=== PATIENT | male | born 1970 | race Caucasian/White ===

== ENCOUNTER 2016-09-26 11:02 | Inpatient (IN) | payer BC ==
--- NOTE | 2016-09-26 11:24 | EDM.PDOC ---
ED HPI GENERAL MEDICAL PROBLEM - General Chief Complaint: Syncope Stated Complaint: NOT FEELING WELL Time Seen by Provider: 09/26/16 11:05 Source of Information: Reports: Patient History Limitations: Reports: No Limitations - History of Present Illness INITIAL COMMENTS - FREE TEXT/NARRATIVE: History of present illness: [46-year-old male presenting with acute complaints of syncope and generally feeling unwell. Patient indicates that he feels somewhat lightheaded and that when he turns his head upside down for any particular reason he feels like he is going to pass out. Patient denies any supplements or workout medication that would affect him this way.] Review of systems: As per history of present illness and below otherwise all systems reviewed and negative. Past medical history: As per history of present illness and as reviewed below otherwise noncontributory. Surgical history: As per history of present illness and as reviewed below otherwise noncontributory. Social history: No reported history of drug or alcohol abuse. Family history: As per history of present illness and as reviewed below otherwise noncontributory. Physical exam: HEENT: Atraumatic, normocephalic, pupils reactive, negative for conjunctival pallor or scleral icterus, mucous membranes moist, throat clear, neck supple, nontender, trachea midline. Lungs: Clear to auscultation, breath sounds equal bilaterally, chest nontender. Heart: S1S2, regular, negative for clicks, rubs, or JVD. Abdomen: Soft, nondistended, nontender. Negative for masses or hepatosplenomegaly. Negative for costovertebral tenderness. Pelvis: Stable nontender. Genitourinary: Deferred. Rectal: Deferred. Extremities: Left leg BKA with stump sock in place negative for cords or calf pain. Neurovascular unremarkable. Neuro: Awake, alert, oriented. Cranial nerves II through XII unremarkable. Cerebellum unremarkable. Motor and sensory unremarkable throughout. Exam nonfocal. Global assessment was benign save subjective complaints of lightheadedness Diagnostics: [CBC, CMP, urine drug screen, UA] Therapeutics: [IV fluid] Impression: [Syncope] Plan: [Admit Definitive disposition and diagnosis as appropriate pending reevaluation and review of above. - Related Data Allergies Allergy/AdvReac Type Severity Reaction Status Date / Time No Known Allergies Allergy Verified 09/26/16 11:09 Home Meds: Home Meds Tadalafil [Cialis] 2.5 mg PO DAILY 03/24/14 [History] Pantoprazole Sodium 0 tab PO DAILY 07/12/15 [History] Magnesium Amino Acid Chelate [Magnesium] 0 mg PO DAILY 09/26/16 [History] Multivit with Calcium,Iron,Min [Essential Daily] 1 tab PO DAILY 09/26/16 [ History] Zinc 50 mg PO DAILY 09/26/16 [History] Past Medical History HEENT History: Reports: Impaired Vision Other HEENT History: wears glasses/contacts Cardiovascular History: Reports: None Respiratory History: Reports: None Gastrointestinal History: Reports: GERD Genitourinary History: Reports: None Neurological History: Reports: Concussion, Headaches, Chronic Other Neuro History: has frequent headaches due to concussion during work accident Psychiatric History: Reports: None Endocrine/Metabolic History: Reports: Obesity/BMI 30+ Hematologic History: Reports: None Immunologic History: Reports: None Oncologic (Cancer) History: Reports: None Dermatologic History: Reports: None - Infectious Disease History Infectious Disease History: Reports: MRSA - Past Surgical History Head Surgeries/Procedures: Reports: None HEENT Surgical History: Reports: None Cardiovascular Surgical History: Reports: None Respiratory Surgical History: Reports: None GI Surgical History: Reports: Appendectomy Male Surgical History: Reports: None Endocrine Surgical History: Reports: None Neurological Surgical History: Reports: None Musculoskeletal Surgical History: Reports: Amputation Other Musculoskeletal Surgeries/Procedures:: 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, proceeded by surgery on his left foot in attempt to save it Oncologic Surgical History: Reports: None Social & Family History - Family History Family Medical History: Noncontributory - Tobacco Use Smoking Status *Q: Never Smoker Second Hand Smoke Exposure: No - Caffeine Use Caffeine Use: Reports: None - Alcohol Use Days Per Week of Alcohol Use: 0 - Recreational Drug Use Recreational Drug Use: No Drug Use in Last 12 Months: No ED ROS GENERAL - Review of Systems Review Of Systems: See Below (History of present illness) ED EXAM, GENERAL - Physical Exam Exam: See Below (History of present illness) Course - Vital Signs Last Recorded V/S: Last Vital Signs Temp 36.6 C 09/26/16 11:16 Pulse 82 09/26/16 11:16 Resp 18 09/26/16 11:16 BP 148/70 H 09/26/16 11:16 Pulse Ox 97 09/26/16 11:16 - Orders/Labs/Meds Orders: Active Orders 24 hr Category Date Time Status DRUG SCREEN, URINE [URCHEM] Stat Lab 09/26/16 11:14 Uncollected RED BLOOD CELLS LP [BBK] Stat Lab 09/26/16 12:54 Received TYPE AND SCREEN [BBK] Stat Lab 09/26/16 12:54 Received UA W/MICROSCOPIC [URIN] Stat Lab 09/26/16 11:14 Uncollected Labs: Laboratory Tests 09/26/16 09/26/16 Range/Units 11:24 11:24 WBC 4.75 (4.0-11.0) K/uL RBC 4.11 L (4.50-5.90) M/uL Hgb 6.3 L (13.0-17.0) g/dL Hct 23.2 L (38.0-50.0) % MCV 56.4 L (80.0-98.0) fL MCH 15.3 L (27.0-32.0) pg MCHC 27.2 L (31.0-37.0) g/dL RDW Std Deviation 44.2 (28.0-62.0) fl RDW Coeff of Branden 22 H (11.0-15.0) % Plt Count 373 (150-400) K/uL MPV 9.10 (7.40-12.00) fL Neut % (Auto) 46.1 L (48.0-80.0) % Lymph % (Auto) 38.1 (16.0-40.0) % [place] % (Auto) 10.3 (0.0-15.0) % Eos % (Auto) 4.4 (0.0-7.0) % Baso % (Auto) 1.1 (0.0-1.5) % Neut # (Auto) 2.2 (1.4-5.7) K/uL Lymph # (Auto) 1.8 (0.6-2.4) K/uL [place] # (Auto) 0.5 (0.0-0.8) K/uL Eos # (Auto) 0.2 (0.0-0.7) K/uL Baso # (Auto) 0.1 (0.0-0.1) K/uL Nucleated RBC % 0.0 /100WBC Nucleated RBCs # 0 K/uL Sodium 138 (136-146) mmol/L Potassium 4.4 (3.5-5.1) mmol/L Chloride 109 (98-110) mmol/L Carbon Dioxide 20 L (21-31) mmol/L BUN 11 (6.0-23.0) mg/dL Creatinine 0.8 (0.6-1.5) mg/dL Est Cr Clr Drug Dosing 140.83 mL/min Estimated GFR (MDRD) > 60.0 ml/min Glucose 102 (60-110) mg/dL Calcium 9.3 (8.8-10.8) mg/dL Total Bilirubin 0.4 (0.1-1.5) mg/dL AST 17 (5-40) IU/L ALT 20 (8-54) IU/L Alkaline Phosphatase 33 L (40-150) Total Protein 7.2 (6.0-8.0) g/dL Albumin 4.1 (3.5-5.0) g/dL Globulin 3.1 (2.0-3.5) g/dL Albumin/Globulin Ratio 1.3 (1.3-2.8) Departure - Departure Time of Disposition: 13:36 Disposition: Home, Self-Care 01 Condition: good Clinical Impression: Syncope - Discharge Information Forms: ED Department Discharge - My Orders Last 24 Hours: My Active Orders 09/26/16 11:14 DRUG SCREEN, URINE [URCHEM] Stat UA W/MICROSCOPIC [URIN] Stat 09/26/16 12:54 RED BLOOD CELLS LP [BBK] Stat TYPE AND SCREEN [BBK] Stat - Assessment/Plan Last 24 Hours: My Active Orders 09/26/16 11:14 DRUG SCREEN, URINE [URCHEM] Stat UA W/MICROSCOPIC [URIN] Stat 09/26/16 12:54 RED BLOOD CELLS LP [BBK] Stat TYPE AND SCREEN [BBK] Stat
[2016-09-26 12:08] LABS: CHLORIDE,CL 109 mmol/L (98-110); SODIUM,NA 138 mmol/L (136-146)
[2016-09-26] MEDS ORDERED: Pantoprazole 80 MG in Sodium Chloride 0.9% 10 ML IVPUSH ONE (15:00)
[2016-09-26] MEDS ORDERED: Sodium Chloride 0.9% 2.5 ML Syringe FLUSH PRN (15:03)
[2016-09-26] MEDS ORDERED: Ondansetron 4 MG/2 ML SDV IVPUSH PRN (15:03)
[2016-09-26] MEDS ORDERED: Acetaminophen 325 MG Tab PO PRN (15:03)
--- NOTE | 2016-09-26 15:08 | PCM.HP ---
H&P History of Present Illness - General Date of Service: 09/26/16 Admit Problem/Dx: Admission Diagnosis/Problem Admission Diagnosis/Problem Anemia Source of Information: Patient History Limitations: Reports: No Limitations - History of Present Illness Initial Comments - Free Text/Narative: This 46 year old male with pmh of GERD, H. pylori, gastritis and BKA from an oil field accident presented to the ED today with concerns of near syncope. He report today he was leaning over and felt very light headed, almost to the point of blacking out but didn't. He thought maybe he needed to eat and drink fluids, which he did and this did not relieve the feelings of lightheadedness. He then came to the ED for evaluation. He reports feeling extremely fatigued over the last week, and did notice some more fatigue with workouts in the last few weeks. He denies hematemesis, black or bloody BMs, denies presence of hemorrhoids. He denies abdominal pain, N/V no diarrhea or constipation. He denies frequent NSAID use, very rare alcohol use, no tobacco products or recreational drug use. He reports he had an EGD last year with Dr Dang, in which a hiatal hernia was noted and after biopsies, severe chronic active gastritis noted along with H. pylori. He reports being treated with 3 medications and completing that course . He has since stayed on Protonix daily. He reports the GERD is tolerable, but he continues to wake up at night with severe heartburn. He does sleep propped up with pillows and tries not eating close to bedtime to reduce GERD symptoms. He denies any chest pain or SOB. In the ED anemia noted, with Hgb 6.3, Hct 23.2, microcytic, hypchromic. BMP WNL. VS stable. Will obtain orthostatics. He will be admitted due to anemia secondary to suspected upper GI bleed. Will consult General surgery to evaluate for possible EGD or further diagnostic study recommendations. Will obtain Iron studies. - Related Data Allergies/Adverse Reactions: Allergies Allergy/AdvReac Type Severity Reaction Status Date / Time No Known Allergies Allergy Verified 09/26/16 11:09 Home Medications: Home Meds Esomeprazole [NexIUM] 40 mg PO DAILY 09/26/16 [History] Multivit with Calcium,Iron,Min [Essential Daily] 1 tab PO DAILY 09/26/16 [ History] Sildenafil [Revatio] 60 mg PO ASDIRECTED PRN 09/26/16 [History] Zinc 50 mg PO DAILY 09/26/16 [History] Past Medical History - Past Health History Medical/Surgical History: Denies Medical/Surgical History HEENT History: Reports: Impaired Vision Other HEENT History: wears glasses/contacts Cardiovascular History: Reports: None. Denies: Blood Clots/VTE/DVT, CAD, High Cholesterol, Hypertension, [place] Respiratory History: Reports: None. Denies: Asthma, COPD, PE, Sleep Apnea Gastrointestinal History: Reports: GERD, Helicobacter Pylori, Hiatal Hernia Genitourinary History: Reports: None. Denies: Acute Renal Failure, Chronic Renal Insuffiency Musculoskeletal History: Reports: Amputation (L BKA secondary to work accident.) Neurological History: Reports: Concussion, Headaches, Chronic Other Neuro History: has frequent headaches due to concussion during work accident Psychiatric History: Reports: None Endocrine/Metabolic History: Reports: None. Denies: Diabetes, Type II, Hypothyroidism Hematologic History: Reports: None Immunologic History: Reports: None Oncologic (Cancer) History: Reports: None Dermatologic History: Reports: None - Infectious Disease History Infectious Disease History: Reports: MRSA - Past Surgical History Head Surgeries/Procedures: Reports: None HEENT Surgical History: Reports: None Cardiovascular Surgical History: Reports: None Respiratory Surgical History: Reports: None GI Surgical History: Reports: Appendectomy Male Surgical History: Reports: None Endocrine Surgical History: Reports: None Neurological Surgical History: Reports: None Musculoskeletal Surgical History: Reports: Amputation Other Musculoskeletal Surgeries/Procedures:: 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, proceeded by surgery on his left foot in attempt to save it Oncologic Surgical History: Reports: None Social & Family History - Family History Family Medical History: Noncontributory - Tobacco Use Smoking Status *Q: Never Smoker Second Hand Smoke Exposure: No - Caffeine Use Caffeine Use: Reports: None - Alcohol Use Alcohol Use History: No Days Per Week of Alcohol Use: 0 - Recreational Drug Use Recreational Drug Use: No Drug Use in Last 12 Months: No - Living Situation & Occupation Living situation: Reports: , with Family Occupation: Employed H&P Review of Systems - Review of Systems: Review Of Systems: See Below General: Reports: Fatigue. Denies: Fever, Chills, Decreased Appetite Pulmonary: Denies: Shortness of Breath, Cough, Sputum Cardiovascular: Reports: Syncope (near syncope today). Denies: Chest Pain, Palpitations, Dyspnea on Exertion, Orthopnea, Edema Gastrointestinal: Reports: Flatus, Other (Heartburn). Denies: Abdominal Pain, Black Stool, Bloody Stool, Constipation, Diarrhea, Decreased Appetite, Hematemesis, Melena, Nausea, Vomiting Genitourinary: Reports: No Symptoms. Denies: Dysuria, Frequency, Burning Musculoskeletal: Reports: No Symptoms Skin: Reports: No Symptoms. Denies: Erythema (denies erythema wounds to L stump ) Neurological: Reports: No Symptoms Hematologic/Lymphatic: Reports: Anemia Immunologic: Reports: No Symptoms Exam - Exam Exam: See Below - Vital Signs Vital Signs: Last Vital Signs Temp 98.8 F 09/26/16 14:42 Pulse 80 09/26/16 14:42 Resp 16 09/26/16 14:42 BP 129/68 09/26/16 14:42 Pulse Ox 98 09/26/16 14:42 Weight: 108.3 kg - Exam General: Alert, Oriented, Cooperative, Other (No acute distress) HEENT: Conjunctiva Clear, Mucosa Moist & [employer], Nares Patent, Posterior Pharynx Clear, Pupils Reactive Neck: Supple, Trachea Midline, 2 Lungs: Clear to Auscultation, Normal Respiratory Effort Cardiovascular: Regular Rate, Regular Rhythm, Normal S1, Normal S2. No: Tachycardia, Systolic Murmur Abdomen: Normal Bowel Sounds, Soft. No: Organomegaly, Distention, Guarding, Rigidity, Tenderness Extremities: Normal Inspection, Normal Pulses, Other (Prosthetic to L lower leg. ) Skin: Warm, Dry, Intact Neuro Extensive - Mental Status: Alert, Oriented x3 Neuro Extensive - Motor, Sensory, Reflexes: CN II-XII Intact Psychiatric: Alert, Normal Affect, Normal Mood - Patient Data Result Diagrams: 09/26/16 11:24 09/26/16 11:24 *Q Meaningful Use (ADM) - VTE *Q VTE Criteria *Q: VTE Pharmacological Contraindications *Q: Risk of Bleeding - Stroke *Q Stroke Criteria *Q: - AMI *Q AMI Criteria *Q: - Problem List (1) Near syncope SNOMED Code(s): 558328043 ICD Code: R55 - SYNCOPE AND COLLAPSE Status: Acute Current Visit: Yes (2) Anemia SNOMED Code(s): 399371671 ICD Code: D64.9 - ANEMIA, UNSPECIFIED Status: Acute Current Visit: Yes Qualifiers: Anemia type: other cause Other causes of anemia: acute posthemorrhagic Qualified Code(s): D62 - Acute posthemorrhagic anemia (3) History of Helicobacter pylori infection SNOMED Code(s): 545876399969630 ICD Code: Z86.19 - PERSONAL HISTORY OF OTHER INFECTIOUS AND PARASITIC DISEASES Status: Chronic Current Visit: Yes Problem Details: 2015 (4) GERD (gastroesophageal reflux disease) SNOMED Code(s): 734305370 ICD Code: K21.9 - GASTRO-ESOPHAGEAL REFLUX DISEASE WITHOUT ESOPHAGITIS Status: Chronic Current Visit: Yes Qualifiers: Esophagitis presence: esophagitis presence not specified Qualified Code(s) : K21.9 - Gastro-esophageal reflux disease without esophagitis Problem List Initiated/Reviewed/Updated: Yes Orders Last 24hrs: Active Orders 24 hr Category Date Time Status Antiembolic Devices [RC] PER UNIT ROUTINE Care 09/26/16 15:04 Ordered Intake and Output [RC] QSHIFT Care 09/26/16 15:03 Ordered Notify Provider Consults [RC] ASDIRECTED Care 09/26/16 15:02 Ordered Oxygen Therapy [RC] PRN Care 09/26/16 15:03 Ordered Telemetry Monitoring [Cardiac Monitoring] [RC] . Care 09/26/16 15:02 Ordered DIRECTED Up With Assistance [RC] ASDIRECTED Care 09/26/16 15:03 Ordered VTE/DVT Education [RC] PER UNIT ROUTINE Care 09/26/16 15:03 Ordered Vital Signs [RC] Q4H Care 09/26/16 15:03 Ordered Consult to Physician [CONS] Routine Cons 09/26/16 15:02 Ordered Clear Liquid Diet [DIET] Diet 09/26/16 Dinner Ordered FERRITIN [REF] Routine Lab 09/26/16 11:24 Received FOLIC ACID [CHEM] Routine Lab 09/26/16 11:24 Received IRON/TIBC [CHEM] Routine Lab 09/26/16 11:24 Received RETICULOCYTE COUNT [HEME] Routine Lab 09/26/16 11:24 Received TRANSFERRIN [CHEM] Routine Lab 09/26/16 11:24 Received VITAMIN B12 [CHEM] Routine Lab 09/26/16 11:24 Received Acetaminophen [Tylenol] Med 09/26/16 15:03 Ordered 650 mg PO Q4H PRN Ondansetron [Zofran] Med 09/26/16 15:03 Ordered 4 mg IVPUSH Q4H PRN Pantoprazole [ProTONIX IV] 80 mg Med 09/26/16 15:00 Active Sodium Chloride 0.9% [Normal Saline] 100 ml IV Q10H Sodium Chloride 0.9% [Saline Flush] Med 09/26/16 15:03 Ordered 2.5 ml FLUSH ASDIRECTED PRN Saline Lock Insert [OM.PC] Routine Ot 09/26/16 15:03 Ordered Sequential Compression Device [OM.PC] Per Unit Routine Ot 09/26/16 15:03 Ordered Transfuse PRBC [Transfuse Red Blood Cells] [COMM] Ot 09/26/16 14:54 Ordered Routine Resuscitation Status Routine Resus Stat 09/26/16 15:03 Ordered Medication Orders Acetaminophen (Tylenol) 650 mg PO Q4H PRN PRN Reason: Pain Pantoprazole Sodium 80 mg/ (Sodium Chloride) 100 mls @ 10 mls/hr IV Q10H CALEB Ondansetron HCl (Zofran) 4 mg IVPUSH Q4H PRN PRN Reason: Nausea Sodium Chloride (Saline Flush) 2.5 ml FLUSH ASDIRECTED PRN PRN Reason: Keep Vein Open Assessment/Plan Comment:: This 46 year old male admitted with symptomatic anemia suspected to be secondary to upper GI bleed 1. Anemia: Hgb 6.3 will transfuse with 2 units, check Hgb post transfusion. Goal Hgb would be at least 8. 2. Upper GI bleed: suspected, will place on Protonix gtt, CL diet for now. Consult General Dr. Timoteo Toribio. Has Hx of H. Pylori infection, which was treated 1 year ago. 3. Near syncope, secondary to symptomatic anemia VTE prophylaxis: SCDs only Dispo: 1-3 days pending improvement.
[2016-09-26] MEDS: Pantoprazole 80 MG in Sodium Chloride 0.9% 100 ML IV SCH (15:54)
--- NOTE | 2016-09-26 18:07 | PCM.CONS ---
H&P History of Present Illness - General Date of Service: 09/26/16 Admit Problem/Dx: Admission Diagnosis/Problem Admission Diagnosis/Problem Anemia Source of Information: Patient History Limitations: Reports: No Limitations - History of Present Illness Onset of Symptoms: Reports: Gradual Duration of Symptoms: Reports: Week(s):, Chronic, Getting Worse Location: Reports: Generalized Severity: Moderate Improves with: Reports: Rest Worsens with: Reports: Movement Context: Reports: Activity/Exercise, Exertion Associated Symptoms: Reports: Malaise, Syncope - Related Data Allergies/Adverse Reactions: Allergies Allergy/AdvReac Type Severity Reaction Status Date / Time No Known Allergies Allergy Verified 09/26/16 11:09 Home Medications: Home Meds Esomeprazole [NexIUM] 40 mg PO DAILY 09/26/16 [History] Multivit with Calcium,Iron,Min [Essential Daily] 1 tab PO DAILY 09/26/16 [ History] Sildenafil [Revatio] 60 mg PO ASDIRECTED PRN 09/26/16 [History] Zinc 50 mg PO DAILY 09/26/16 [History] Past Medical History - Past Health History Medical/Surgical History: Denies Medical/Surgical History HEENT History: Reports: Impaired Vision Other HEENT History: wears glasses/contacts Cardiovascular History: Reports: None. Denies: Blood Clots/VTE/DVT, CAD, High Cholesterol, Hypertension, [place] Respiratory History: Reports: None. Denies: Asthma, COPD, PE, Sleep Apnea Gastrointestinal History: Reports: GERD, Helicobacter Pylori, Hiatal Hernia Genitourinary History: Reports: None. Denies: Acute Renal Failure, Chronic Renal Insuffiency Musculoskeletal History: Reports: Amputation (L BKA secondary to work accident.) Neurological History: Reports: Concussion, Headaches, Chronic Other Neuro History: has frequent headaches due to concussion during work accident Psychiatric History: Reports: None Endocrine/Metabolic History: Reports: None. Denies: Diabetes, Type II, Hypothyroidism Hematologic History: Reports: None Immunologic History: Reports: None Oncologic (Cancer) History: Reports: None Dermatologic History: Reports: None - Infectious Disease History Infectious Disease History: Reports: MRSA - Past Surgical History Head Surgeries/Procedures: Reports: None HEENT Surgical History: Reports: None Cardiovascular Surgical History: Reports: None Respiratory Surgical History: Reports: None GI Surgical History: Reports: Appendectomy, EGD Male Surgical History: Reports: None Endocrine Surgical History: Reports: None Neurological Surgical History: Reports: None Musculoskeletal Surgical History: Reports: Amputation Other Musculoskeletal Surgeries/Procedures:: 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, proceeded by surgery on his left foot in attempt to save it Oncologic Surgical History: Reports: None Social & Family History - Family History Family Medical History: Noncontributory - Tobacco Use Smoking Status *Q: Never Smoker Second Hand Smoke Exposure: No - Caffeine Use Caffeine Use: Reports: None Caffeine Use Comment: 1 cup daily - Alcohol Use Days Per Week of Alcohol Use: 0 - Recreational Drug Use Recreational Drug Use: No Drug Use in Last 12 Months: No - Living Situation & Occupation Living situation: Reports: , with Family Occupation: Employed H&P Review of Systems - Review of Systems: Review Of Systems: See Below General: Reports: Malaise, Weakness, Fatigue HEENT: Reports: No Symptoms Pulmonary: Denies: Shortness of Breath Cardiovascular: Denies: Chest Pain, Palpitations Gastrointestinal: Reports: Flatus. Denies: Abdominal Pain, Anorexia, Black Stool, Bloody Stool, Constipation, Diarrhea, Decreased Appetite, Hematemesis, Hematochezia, Melena, Nausea, Vomiting Genitourinary: Reports: No Symptoms Musculoskeletal: Reports: No Symptoms Skin: Reports: No Symptoms Psychiatric: Reports: No Symptoms Neurological: Reports: No Symptoms Hematologic/Lymphatic: Reports: Anemia. Denies: Easy Bleeding, Easy Bruising Immunologic: Reports: No Symptoms Exam - Exam Exam: See Below - Vital Signs Vital Signs: Last Vital Signs Temp 99.1 F 09/26/16 17:36 Pulse 74 09/26/16 15:36 Resp 19 09/26/16 17:36 BP 133/59 L 09/26/16 17:36 Pulse Ox 96 09/26/16 17:36 Weight: 238 lb 12.17 oz - Exam General: Alert, Oriented, Cooperative HEENT: Conjunctiva Clear, EACs Clear, EOMI, Hearing Intact, Pupils Equal, Pupils Reactive. No: Scleral Icterus Neck: Supple, Trachea Midline Lungs: Clear to Auscultation, Normal Respiratory Effort Cardiovascular: Regular Rate, Regular Rhythm Abdomen: Normal Bowel Sounds, Soft, Pelvis Stable. No: Peritoneal Signs, Distention, Guarding, Rigidity, Rebound, Tenderness (Male) Exam: No Hernia Rectal (Males) Exam: Deferred (Stool hemoccult negative from ER) Back Exam: Normal Inspection Extremities: Normal Inspection, Other (Left BKA) Skin: Warm, Dry, Intact Neurological: Cranial Nerves Intact Neuro Extensive - Mental Status: Alert, Oriented x3, Normal Mood/Affect, Normal Cognition, Memory Intact Psychiatric: Alert, Normal Affect, Normal Mood - Patient Data Result Diagrams: 09/26/16 11:24 09/26/16 11:24 Consult PN Assessment/Plan Procedures: Procedures ASSAY OF ESTRADIOL (12/20/15) ASSAY OF FREE TESTOSTERONE (12/20/15) ASSAY OF GONADOTROPIN (LH) (12/20/15) ASSAY OF TOTAL TESTOSTERONE (12/20/15) ASSAY THYROID STIM HORMONE (12/20/15) CHORIONIC GONADOTROPIN TEST (12/20/15) COMPLETE CBC W/AUTO DIFF WBC (03/24/14) COMPREHEN METABOLIC PANEL (12/20/15) CT ABDOMEN W/O & W/DYE (01/11/16) CULTURE OTHR SPECIMN AEROBIC (09/19/13) DRAINAGE OF SKIN ABSCESS (09/19/13) EGD BIOPSY SINGLE/MULTIPLE (07/14/15) EMERGENCY DEPT VISIT (03/22/16) EMERGENCY DEPT VISIT (09/20/13) EMERGENCY DEPT VISIT (09/19/13) HELICOBACTER PYLORI ANTIBODY (09/06/15) LIPID PANEL (12/20/15) ROUTINE VENIPUNCTURE (12/20/15) THER/PROPH/DIAG INJ SC/IM (09/19/13) X-RAY EXAM OF FINGER(S) (03/22/16) (1) Anemia SNOMED Code(s): 616280909 Code(s): D64.9 - ANEMIA, UNSPECIFIED Priority: High Current Visit: Yes Qualifiers: Anemia type: other cause Other causes of anemia: acute posthemorrhagic Qualified Code(s): D62 - Acute posthemorrhagic anemia (2) Near syncope SNOMED Code(s): 928366616 Code(s): R55 - SYNCOPE AND COLLAPSE Priority: Medium Current Visit: Yes (3) History of Helicobacter pylori infection SNOMED Code(s): 072586141089483 Code(s): Z86.19 - PERSONAL HISTORY OF OTHER INFECTIOUS AND PARASITIC DISEASES Priority: Medium Current Visit: Yes Comment: 2016 Problem List Initiated/Reviewed/Updated: Yes Plan: Esophagogastroduodenoscopy with biopsy. The operative procedure, along with the risks, including, but not limited to, bleeding, perforation, and the need for surgery were discussed with the patient who voices understanding, offers no questions and wishes to proceed.
[2016-09-27] MEDS: Pantoprazole 80 MG in Sodium Chloride 0.9% 100 ML IV SCH ×2 (01:56→10:54)
[2016-09-27 07:19] LABS: CHLORIDE,CL 110 mmol/L (98-110); SODIUM,NA 138 mmol/L (136-146)
--- NOTE | 2016-09-27 07:54 | PCM.PN ---
- General Info Date of Service: 09/27/16 Admission Dx/Problem (Free Text): Admission Diagnosis/Problem Admission Diagnosis/Problem Anemia Subjective Update: Doing well this morning, feels less fatigue. No abdominal pain, no bms overnight. No chest pain or SOB. Does have Heartburn which is baseline for him. Eager for EGD today. Functional Status: Reports: pain controlled, ambulating, urinating - Review of Systems General: Reports: No Symptoms. Denies: Fever HEENT: Reports: no symptoms. Denies: sinus congestion, sore throat Pulmonary: Reports: no symptoms. Denies: shortness of breath, cough, sputum Cardiovascular: Denies: Chest Pain, Palpitations, Dyspnea on Exertion, Lightheadedness Gastrointestinal: Reports: Other (heartburn). Denies: Abdominal pain, Nausea, Vomiting Genitourinary: Reports: no symptoms. Denies: dysuria, frequency, burning, pain Musculoskeletal: Reports: no symptoms Skin: Reports: no symptoms Neurological: Reports: No Symptoms Psychiatric: Reports: no symptoms - Patient Data Vitals - most recent: Last Vital Signs Temp 98.6 F 09/27/16 07:22 Pulse 69 09/27/16 07:22 Resp 15 09/27/16 07:22 BP 117/58 L 09/27/16 07:22 Pulse Ox 96 09/27/16 07:22 Weight - most recent: 108.3 kg I&O - last 24 hours: Intake & Output 09/26/16 09/27/16 09/27/16 22:59 06:59 14:59 Intake Total 762 1400 Output Total 300 1050 Balance 462 350 Lab Results last 24 hrs: Laboratory Results - last 24 hr 09/26/16 09/27/16 09/27/16 Range/Units 21:25 06:35 06:35 WBC 7.39 (4.0-11.0) K/uL RBC 4.97 (4.50-5.90) M/uL Hgb 7.5 L 9.1 L (13.0-17.0) g/dL Hct 26.6 L 30.8 L (38.0-50.0) % MCV 62.0 L (80.0-98.0) fL MCH 18.3 L (27.0-32.0) pg MCHC 29.5 L (31.0-37.0) g/dL RDW Std Deviation 57.9 (28.0-62.0) fl RDW Coeff of Branden 27 H (11.0-15.0) % Plt Count 325 (150-400) K/uL Neut % (Auto) 57.7 (48.0-80.0) % Lymph % (Auto) 29.1 (16.0-40.0) % [place] % (Auto) 9.6 (0.0-15.0) % Eos % (Auto) 3.2 (0.0-7.0) % Baso % (Auto) 0.4 (0.0-1.5) % Neut # (Auto) 4.3 (1.4-5.7) K/uL Lymph # (Auto) 2.2 (0.6-2.4) K/uL [place] # (Auto) 0.7 (0.0-0.8) K/uL Eos # (Auto) 0.2 (0.0-0.7) K/uL Baso # (Auto) 0.0 (0.0-0.1) K/uL Nucleated RBC % 0.0 /100WBC Nucleated RBCs # 0 K/uL Sodium 138 (136-146) mmol/L Potassium 4.9 (3.5-5.1) mmol/L Chloride 110 (98-110) mmol/L Carbon Dioxide 20 L (21-31) mmol/L BUN 8 (6.0-23.0) mg/dL Creatinine 0.8 (0.6-1.5) mg/dL Est Cr Clr Drug Dosing 140.83 mL/min Estimated GFR (MDRD) > 60.0 ml/min Glucose 83 (60-110) mg/dL Calcium 9.4 (8.8-10.8) mg/dL Med Orders - Current: Current Medications Acetaminophen (Tylenol) 650 mg PO Q4H PRN PRN Reason: Pain Pantoprazole Sodium 80 mg/ (Sodium Chloride) 100 mls @ 10 mls/hr IV Q10H [facility] Last Admin: 09/27/16 01:56 Dose: 10 mls/hr Ondansetron HCl (Zofran) 4 mg IVPUSH Q4H PRN PRN Reason: Nausea Sodium Chloride (Saline Flush) 2.5 ml FLUSH ASDIRECTED PRN PRN Reason: Keep Vein Open Discontinued Medications Pantoprazole Sodium 80 mg/ (Sodium Chloride) 10 mls @ 300 mls/hr IVPUSH NOW ONE Stop: 09/26/16 15:01 Last Admin: 09/26/16 15:53 Dose: 300 mls/hr - Exam General: alert, oriented, cooperative HEENT: Pupils equal, Pupils reactive, EOMI, Mucous membr. moist/pink Lungs: Clear to auscultation, Normal respiratory effort Cardiovascular: Regular Rate, Regular Rhythm Abdomen: bowel sounds present, soft, no tenderness, no distension Extremities: no edema, normal pulses Psy/Mental Status: alert, normal affect, normal mood - Problem List & Annotations (1) Near syncope SNOMED Code(s): 533273196 Code(s): R55 - SYNCOPE AND COLLAPSE Status: Acute Priority: Medium Current Visit: Yes (2) Anemia SNOMED Code(s): 371037016 Code(s): D64.9 - ANEMIA, UNSPECIFIED Status: Acute Priority: High Current Visit: Yes Qualifiers: Anemia type: other cause Other causes of anemia: acute posthemorrhagic Qualified Code(s): D62 - Acute posthemorrhagic anemia (3) History of Helicobacter pylori infection SNOMED Code(s): 046866953395731 Code(s): Z86.19 - PERSONAL HISTORY OF OTHER INFECTIOUS AND PARASITIC DISEASES Status: Chronic Priority: Medium Current Visit: Yes Annotation/ Comment:: 2016 (4) GERD (gastroesophageal reflux disease) SNOMED Code(s): 586677962 Code(s): K21.9 - GASTRO-ESOPHAGEAL REFLUX DISEASE WITHOUT ESOPHAGITIS Status: Chronic Current Visit: Yes Qualifiers: Esophagitis presence: esophagitis presence not specified Qualified Code(s) : K21.9 - Gastro-esophageal reflux disease without esophagitis - Problem List Review Problem List Initiated/Reviewed/Updated: Yes - My Orders Last 24 Hours: My Active Orders 09/26/16 11:24 FERRITIN [REF] Routine 09/26/16 15:00 Pantoprazole [ProTONIX IV] 80 mg Sodium Chloride 0.9% [Normal Saline] 100 ml IV Q10H 09/26/16 15:02 Notify Provider Consults [RC] ASDIRECTED Telemetry Monitoring [Cardiac Monitoring] [RC] Q8H Consult to Physician [CONS] Routine 09/26/16 15:03 Intake and Output [RC] Q12H Oxygen Therapy [RC] PRN Up With Assistance [RC] ASDIRECTED Vital Signs [RC] Q4H Acetaminophen [Tylenol] 650 mg PO Q4H PRN Ondansetron [Zofran] 4 mg IVPUSH Q4H PRN Sodium Chloride 0.9% [Saline Flush] 2.5 ml FLUSH ASDIRECTED PRN Saline Lock Insert [OM.PC] Routine Sequential Compression Device [OM.PC] Per Unit Routine Resuscitation Status Routine 09/26/16 15:04 Antiembolic Devices [RC] PER UNIT ROUTINE 09/27/16 07:27 Fecal Occult Blood Collection [RC] ASDIRECTED OCCULT BLOOD DIAGNOSTIC [OP] Routine 09/28/16 05:00 BMP [BASIC METABOLIC PANEL,BMP] [CHEM] DAILY CBC WITH AUTO DIFF [HEME] DAILY 09/29/16 05:00 BMP [BASIC METABOLIC PANEL,BMP] [CHEM] DAILY CBC WITH AUTO DIFF [HEME] DAILY - Plan Plan:: This 46 year old male admitted with symptomatic anemia suspected to be secondary to upper GI bleed 1. Anemia: Hgb 9.1 today after transfusion with 4 units total. Will likely monitor 1 more night to ensure hgb is stable. Iron studies completed, appears as iron deficiency anemia. peripheral smear pending. 2. Upper GI bleed: suspected, Continue Protonix gtt. I appreciated Dr. Mahmood' s consultation, EGD today. Will follow recommendations from findings of this. 3. Near syncope; Resolved. No longer having lightheadedness. secondary to symptomatic anemia VTE prophylaxis: SCDs only Dispo: 1 day
--- NOTE | 2016-09-27 10:47 | PCM.PREANE ---
Preanesthetic Assessment - Anesthesia/Transfusion/Family Hx Anesthesia History: Prior Anesthesia Without Reaction Family History of Anesthesia Reaction: No Transfusion History: Prior Transfusion Without Reaction (transfused 4 units pRBC , Hb now 9.1, up from 6.3 on admission) - Review of Systems General: No Symptoms Pulmonary: No Symptoms Cardiovascular: No Symptoms Gastrointestinal: No symptoms Neurological: No Symptoms Other: Reports: None - Physical Assessment NPO Status Date: 09/26/16 O2 Sat by Pulse Oximetry: 96 Respiratory Rate: 15 Temperature: 37.0 C Vital Signs: Last Vital Signs Temp 37.0 C 09/27/16 07:22 Pulse 69 09/27/16 07:22 Resp 15 09/27/16 07:22 BP 117/58 L 09/27/16 07:22 Pulse Ox 96 09/27/16 07:22 Height: 1.91 m Weight: 108.3 kg ASA Class: 2 Mental Status: Alert & Oriented x3 Airway Class: Mallampati = 2 Lungs: Clear to auscultation, Normal respiratory effort Cardiovascular: Regular Rate, Regular Rhythm - Lab Values: Laboratory Last Values WBC 7.39 K/uL (4.0-11.0) 09/27/16 06:35 RBC 4.97 M/uL (4.50-5.90) 09/27/16 06:35 Hgb 9.1 g/dL (13.0-17.0) L 09/27/16 06:35 Hct 30.8 % (38.0-50.0) L 09/27/16 06:35 MCV 62.0 fL (80.0-98.0) L 09/27/16 06:35 MCH 18.3 pg (27.0-32.0) L 09/27/16 06:35 MCHC 29.5 g/dL (31.0-37.0) L 09/27/16 06:35 RDW Std Deviation 57.9 fl (28.0-62.0) 09/27/16 06:35 RDW Coeff of Branden 27 % (11.0-15.0) H 09/27/16 06:35 Plt Count 325 K/uL (150-400) 09/27/16 06:35 MPV 9.10 fL (7.40-12.00) 09/26/16 11:24 Neut % (Auto) 57.7 % (48.0-80.0) 09/27/16 06:35 Lymph % (Auto) 29.1 % (16.0-40.0) 09/27/16 06:35 [place] % (Auto) 9.6 % (0.0-15.0) 09/27/16 06:35 Eos % (Auto) 3.2 % (0.0-7.0) 09/27/16 06:35 Baso % (Auto) 0.4 % (0.0-1.5) 09/27/16 06:35 Neut # (Auto) 4.3 K/uL (1.4-5.7) 09/27/16 06:35 Lymph # (Auto) 2.2 K/uL (0.6-2.4) 09/27/16 06:35 [place] # (Auto) 0.7 K/uL (0.0-0.8) 09/27/16 06:35 Eos # (Auto) 0.2 K/uL (0.0-0.7) 09/27/16 06:35 Baso # (Auto) 0.0 K/uL (0.0-0.1) 09/27/16 06:35 Nucleated RBC % 0.0 /100WBC 09/27/16 06:35 Nucleated RBCs # 0 K/uL 09/27/16 06:35 Smear Path Review SENT TO PATHOLOGY 09/26/16 11:24 Absolute Retic 53.10 K/uL (20-80) 09/26/16 11:24 Percent Retic 1.3 % (0.5-1.5) 09/26/16 11:24 Immature Retic Fraction 17 % 09/26/16 11:24 Sodium 138 mmol/L (136-146) 09/27/16 06:35 Potassium 4.9 mmol/L (3.5-5.1) 09/27/16 06:35 Chloride 110 mmol/L (98-110) 09/27/16 06:35 Carbon Dioxide 20 mmol/L (21-31) L 09/27/16 06:35 BUN 8 mg/dL (6.0-23.0) 09/27/16 06:35 Creatinine 0.8 mg/dL (0.6-1.5) 09/27/16 06:35 Est Cr Clr Drug Dosing 140.83 mL/min 09/27/16 06:35 Estimated GFR (MDRD) > 60.0 ml/min 09/27/16 06:35 Glucose 83 mg/dL (60-110) 09/27/16 06:35 Calcium 9.4 mg/dL (8.8-10.8) 09/27/16 06:35 Iron 18 ug/dL (50-170) L 09/26/16 11:24 TIBC 418 ug/dL (273-456) 09/26/16 11:24 % Saturation 4.31 % (20-55) L 09/26/16 11:24 Transferrin 311 ug/dL (200-400) 09/26/16 11:24 Total Bilirubin 0.4 mg/dL (0.1-1.5) 09/26/16 11:24 AST 17 IU/L (5-40) 09/26/16 11:24 ALT 20 IU/L (8-54) 09/26/16 11:24 Alkaline Phosphatase 33 (40-150) L 09/26/16 11:24 Total Protein 7.2 g/dL (6.0-8.0) 09/26/16 11:24 Albumin 4.1 g/dL (3.5-5.0) 09/26/16 11:24 Globulin 3.1 g/dL (2.0-3.5) 09/26/16 11:24 Albumin/Globulin Ratio 1.3 (1.3-2.8) 09/26/16 11:24 Vitamin B12 452 PG/ML (200-1100) 09/26/16 11:24 Folate 18.2 ng/mL (7.2-15.4) H 09/26/16 11:24 Urine Color YELLOW 09/26/16 13:45 Urine Appearance CLEAR 09/26/16 13:45 Urine pH 6.5 (5.0-8.0) 09/26/16 13:45 Ur Specific [place] 1.015 (1.001-1.035) 09/26/16 13:45 Urine Protein NEGATIVE mg/dL (NEGATIVE) 09/26/16 13:45 Urine Glucose (UA) NEGATIVE mg/dL (NEGATIVE) 09/26/16 13:45 Urine Ketones NEGATIVE mg/dL (NEGATIVE) 09/26/16 13:45 Urine Occult Blood NEGATIVE (NEGATIVE) 09/26/16 13:45 Urine Nitrite NEGATIVE (NEGATIVE) 09/26/16 13:45 Urine Bilirubin NEGATIVE (NEGATIVE) 09/26/16 13:45 Urine Urobilinogen 0.2 EU/dL (<2.0) 09/26/16 13:45 Ur Leukocyte Esterase NEGATIVE (NEGATIVE) 09/26/16 13:45 Urine RBC 0-1 (0-2/HPF) 09/26/16 13:45 Urine WBC 0-2 (0-5/HPF) 09/26/16 13:45 Ur Epithelial Cells RARE (NONE-FEW) 09/26/16 13:45 Urine Bacteria RARE (NEGATIVE) 09/26/16 13:45 Urine Opiates Screen NEGATIVE (NEGATIVE) 09/26/16 13:45 Ur Oxycodone Screen NEGATIVE (NEGATIVE) 09/26/16 13:45 Urine Methadone Screen NEGATIVE (NEGATIVE) 09/26/16 13:45 Ur Barbiturates Screen NEGATIVE (NEGATIVE) 09/26/16 13:45 Ur Phencyclidine Scrn NEGATIVE (NEGATIVE) 09/26/16 13:45 Ur Amphetamine Screen NEGATIVE (NEGATIVE) 09/26/16 13:45 U Methamphetamines Scrn NEGATIVE (NEGATIVE) 09/26/16 13:45 U Benzodiazepines Scrn NEGATIVE (NEGATIVE) 09/26/16 13:45 U Cocaine Metab Screen NEGATIVE (NEGATIVE) 09/26/16 13:45 U Marijuana (THC) Screen NEGATIVE (NEGATIVE) 09/26/16 13:45 Blood Type O POSITIVE 09/26/16 12:54 Antibody Screen NEGATIVE 09/26/16 12:54 Crossmatch See Detail 09/26/16 12:54 - Allergies Allergies/Adverse Reactions: Allergies Allergy/AdvReac Type Severity Reaction Status Date / Time No Known Allergies Allergy Verified 09/26/16 11:09 - Blood Blood Available: Yes - Acknowledgements Anesthesia Type Planned: MAC Pt an Appropriate Candidate for the Planned Anesthesia: Yes Alternatives and Risks of Anesthesia Discussed w Pt/Guardian: Yes Pt/Guardian Understands and Agrees with Anesthesia Plan: Yes Additional Comments: problem list: hx MRSA, GERD, chronic AVALOS's, s/p BKA. NKDA PreAnesthesia Questionnaire - Past Health History Medical/Surgical History: Denies Medical/Surgical History HEENT History: Reports: Impaired Vision Other HEENT History: wears glasses/contacts Cardiovascular History: Reports: None. Denies: Blood Clots/VTE/DVT, CAD, High Cholesterol, Hypertension, SD Respiratory History: Reports: None. Denies: Asthma, COPD, PE, Sleep Apnea Gastrointestinal History: Reports: GERD, Helicobacter Pylori, Hiatal Hernia Genitourinary History: Reports: None. Denies: Acute Renal Failure, Chronic Renal Insuffiency Musculoskeletal History: Reports: Amputation (L BKA secondary to work accident.) Neurological History: Reports: Concussion, Headaches, Chronic Other Neuro History: has frequent headaches due to concussion during work accident Psychiatric History: Reports: None Endocrine/Metabolic History: Reports: None. Denies: Diabetes, Type II, Hypothyroidism Hematologic History: Reports: None Immunologic History: Reports: None Oncologic (Cancer) History: Reports: None Dermatologic History: Reports: None - Infectious Disease History Infectious Disease History: Reports: MRSA - Past Surgical History Head Surgeries/Procedures: Reports: None HEENT Surgical History: Reports: None Cardiovascular Surgical History: Reports: None Respiratory Surgical History: Reports: None GI Surgical History: Reports: Appendectomy, EGD Male Surgical History: Reports: None Endocrine Surgical History: Reports: None Neurological Surgical History: Reports: None Musculoskeletal Surgical History: Reports: Amputation Other Musculoskeletal Surgeries/Procedures:: 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, proceeded by surgery on his left foot in attempt to save it Oncologic Surgical History: Reports: None - SUBSTANCE USE Smoking Status *Q: Never Smoker Tobacco Use Within Last Twelve Months: No Second Hand Smoke Exposure: No Days Per Week of Alcohol Use: 0 Recreational Drug Use History: No - HOME MEDS Home Medications: Home Meds Esomeprazole [NexIUM] 40 mg PO DAILY 09/26/16 [History] Multivit with Calcium,Iron,Min [Essential Daily] 1 tab PO DAILY 09/26/16 [ History] Sildenafil [Revatio] 60 mg PO ASDIRECTED PRN 09/26/16 [History] Zinc 50 mg PO DAILY 09/26/16 [History] - CURRENT (IN HOUSE) MEDS Current Meds: Current Medications Acetaminophen (Tylenol) 650 mg PO Q4H PRN PRN Reason: Pain Pantoprazole Sodium 80 mg/ (Sodium Chloride) 100 mls @ 10 mls/hr IV Q10H [facility] Last Admin: 09/27/16 01:56 Dose: 10 mls/hr Ondansetron HCl (Zofran) 4 mg IVPUSH Q4H PRN PRN Reason: Nausea Sodium Chloride (Saline Flush) 2.5 ml FLUSH ASDIRECTED PRN PRN Reason: Keep Vein Open Discontinued Medications Pantoprazole Sodium 80 mg/ (Sodium Chloride) 10 mls @ 300 mls/hr IVPUSH NOW ONE Stop: 09/26/16 15:01 Last Admin: 09/26/16 15:53 Dose: 300 mls/hr
[2016-09-27] MEDS ORDERED: Midazolam 1 MG/ML 2 ML SDV ONE (11:07)
[2016-09-27] MEDS ORDERED: Propofol 200 MG/20 ML SDV ONE (11:07)
[2016-09-27] MEDS ORDERED: fentaNYL 100 MCG/2 ML SDV ONE (11:07)
--- NOTE | 2016-09-27 11:58 | PCM.POSTAN ---
POST ANESTHESIA ASSESSMENT - MENTAL STATUS Mental Status: alert, oriented - RESPIRATORY Respiratory Status: respiratory rate WNL, airway patent, O2 saturation stable - CARDIOVASCULAR CV Status: pulse rate WNL, blood pressure stable - GASTROINTESTINAL GI Status: no symptoms - PAIN Pain Score: 0 - POST OP HYDRATION Hydration Status: adequate & stable
--- NOTE | 2016-09-27 11:58 | PCM.OPNOTE ---
- General Post-Op/Procedure Note Date of Surgery/Procedure: 09/27/16 Operative Procedure(s): EGD w/biopsy Pre Op Diagnosis: Anemia Post-Op Diagnosis: Mild chronic gastritis Anesthesia Technique: MAC (ASA IE) Primary Surgeon: Ariel Mahmood Condition: Fair Free Text/Narrative:: Intake & Output 09/26/16 09/27/16 09/27/16 19:59 03:59 11:59 Intake Total 172 220 0200 Output Total 300 1050 [facility] [phone] -13 Dictation [id number] [facility] [place] [id number]
[2016-09-27 12:53] VITALS: BP 128/76
--- NOTE | 2016-09-27 14:49 | PCM.DCSUM1 ---
Addendum entered and electronically signed by Xochitl Peralta NP 09/27/16 15: 37: Discharge Summary - Hospital Course Free Text/Narrative:: Spoke with Dr. May, GI specialist at [facility] regarding heme positive stools. He would like to do outpatient colonoscopy next week. He recommends NO oral Iron and to give IV iron today prior to discharge. His office will then be in touch with patient regarding prep and colonoscopy date. Patient and updated and are in agreement with plan going forward. Brief History: This 46 year old male with pmh of GERD, H. 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 He reported he was leaning over and felt very light headed, almost to the point of blacking out but didn't. He thought maybe he needed to eat and drink fluids, which he did and this did not relieve the feelings of lightheadedness. He then came to the ED for evaluation. He reported feeling extremely fatigued over the last week, and did notice some more fatigue with workouts in the last few weeks. He denies hematemesis, black or bloody BMs, denies presence of hemorrhoids. He denies abdominal pain, N/V no diarrhea or constipation. He denies frequent NSAID use, very rare alcohol use, no tobacco products or recreational drug use. He reports he had an EGD last year with Dr Dang, in which a hiatal hernia was noted and after biopsies, severe chronic active gastritis noted along with H. pylori. He reports being treated with 3 medications and completing that course . He has since stayed on Protonix daily. He reports the GERD is tolerable, but he continues to wake up at night with severe heartburn. He does sleep propped up with pillows and tries not eating close to bedtime to reduce GERD symptoms. He denies any chest pain or SOB. In the ED anemia noted, with Hgb 6.3, Hct 23.2, microcytic, hypchromic. BMP WNL. VS stable. He was admitted due to anemia secondary to suspected upper GI bleed. General surgery to evaluate for possible EGD or further diagnostic study recommendations. PCP, SANDRA Riggins - Discharge Data Discharge Date: 09/27/16 Discharge Disposition: Home, Self-Care 01 Condition: Good - Discharge Diagnosis/Problem(s) (1) Near syncope SNOMED Code(s): 655810857 ICD Code: R55 - SYNCOPE AND COLLAPSE Status: Acute Priority: Medium Current Visit: Yes (2) Anemia SNOMED Code(s): 735976980 ICD Code: D64.9 - ANEMIA, UNSPECIFIED Status: Acute Priority: High Current Visit: Yes Qualifiers: Anemia type: other cause Other causes of anemia: acute posthemorrhagic Qualified Code(s): D62 - Acute posthemorrhagic anemia (3) History of Helicobacter pylori infection SNOMED Code(s): 072275104346558 ICD Code: Z86.19 - PERSONAL HISTORY OF OTHER INFECTIOUS AND PARASITIC DISEASES Status: Chronic Priority: Medium Current Visit: Yes Problem Details: 2015 (4) GERD (gastroesophageal reflux disease) SNOMED Code(s): 752453542 ICD Code: K21.9 - GASTRO-ESOPHAGEAL REFLUX DISEASE WITHOUT ESOPHAGITIS Status: Chronic Current Visit: Yes Qualifiers: Esophagitis presence: esophagitis presence not specified Qualified Code(s) : K21.9 - Gastro-esophageal reflux disease without esophagitis - Patient Summary/Data Operative Procedure(s) Performed: EGD w/biopsy Consults: Consultations 09/26/16 15:02 Consult to Physician [CONS] Routine - Patient Instructions Diet: Regular Diet as Tolerated Activity: As Tolerated Driving: May Drive Today Showering/Bathing: May Shower Notify Provider of: Fever, Increased Pain, Swelling and Redness, Drainage, Nausea and/or Vomiting - Discharge Plan Prescriptions/Med Rec: Pantoprazole Sodium [Protonix] 40 mg PO BID #60 tablet. Sucralfate [Carafate] 1 gm PO QIDACANDBED #120 tablet Home Medications: Home Meds Sildenafil [Revatio] 60 mg PO ASDIRECTED PRN 09/26/16 [History] Zinc 50 mg PO DAILY 09/26/16 [History] Pantoprazole Sodium [Protonix] 40 mg PO BID #60 tablet. 09/27/16 [Rx] Sucralfate [Carafate] 1 gm PO QIDACANDBED #120 tablet 09/27/16 [Rx] Patient Handouts: Anemia, Nonspecific, Iron tablets, capsules, extended- release tablets, Sucralfate tablets, Pantoprazole tablets Referrals: Cesia Fournier NP [Nurse Practitioner] - 10/02/16 10:30 am Jean-Pierre May MD [Ordering Only Provider] - 11/27/16 3:30 pm (Dr. May's office will be in touch with you regarding colonoscopy next week. ) - Patient Data Vitals - Most Recent: Last Vital Signs Temp 98.4 F 09/27/16 12:52 Pulse 73 09/27/16 12:52 Resp 17 09/27/16 12:52 BP 128/76 09/27/16 12:52 Pulse Ox 97 09/27/16 12:52 Weight - Most Recent: 108.3 kg I&O - Last 24 hours: Intake & Output 09/27/16 09/27/16 09/27/16 06:59 14:59 22:59 Intake Total 1400 600 Output Total 1050 Balance 350 600 Lab Results - Last 24 hrs: Laboratory Results - last 24 hr 09/26/16 09/27/16 09/27/16 Range/Units 21:25 06:35 06:35 WBC 7.39 (4.0-11.0) K/uL RBC 4.97 (4.50-5.90) M/uL Hgb 7.5 L 9.1 L (13.0-17.0) g/dL Hct 26.6 L 30.8 L (38.0-50.0) % MCV 62.0 L (80.0-98.0) fL MCH 18.3 L (27.0-32.0) pg MCHC 29.5 L (31.0-37.0) g/dL RDW Std Deviation 57.9 (28.0-62.0) fl RDW Coeff of Branden 27 H (11.0-15.0) % Plt Count 325 (150-400) K/uL Neut % (Auto) 57.7 (48.0-80.0) % Lymph % (Auto) 29.1 (16.0-40.0) % [place] % (Auto) 9.6 (0.0-15.0) % Eos % (Auto) 3.2 (0.0-7.0) % Baso % (Auto) 0.4 (0.0-1.5) % Neut # (Auto) 4.3 (1.4-5.7) K/uL Lymph # (Auto) 2.2 (0.6-2.4) K/uL [place] # (Auto) 0.7 (0.0-0.8) K/uL Eos # (Auto) 0.2 (0.0-0.7) K/uL Baso # (Auto) 0.0 (0.0-0.1) K/uL Nucleated RBC % 0.0 /100WBC Nucleated RBCs # 0 K/uL Sodium 138 (136-146) mmol/L Potassium 4.9 (3.5-5.1) mmol/L Chloride 110 (98-110) mmol/L Carbon Dioxide 20 L (21-31) mmol/L BUN 8 (6.0-23.0) mg/dL Creatinine 0.8 (0.6-1.5) mg/dL Est Cr Clr Drug Dosing 140.83 mL/min Estimated GFR (MDRD) > 60.0 ml/min Glucose 83 (60-110) mg/dL Calcium 9.4 (8.8-10.8) mg/dL 09/27/16 Range/Units 13:52 WBC (4.0-11.0) K/uL RBC (4.50-5.90) M/uL Hgb 9.7 L (13.0-17.0) g/dL Hct 33.5 L (38.0-50.0) % MCV (80.0-98.0) fL MCH (27.0-32.0) pg MCHC (31.0-37.0) g/dL RDW Std Deviation (28.0-62.0) fl RDW Coeff of Branden (11.0-15.0) % Plt Count (150-400) K/uL Neut % (Auto) (48.0-80.0) % Lymph % (Auto) (16.0-40.0) % [place] % (Auto) (0.0-15.0) % Eos % (Auto) (0.0-7.0) % Baso % (Auto) (0.0-1.5) % Neut # (Auto) (1.4-5.7) K/uL Lymph # (Auto) (0.6-2.4) K/uL [place] # (Auto) (0.0-0.8) K/uL Eos # (Auto) (0.0-0.7) K/uL Baso # (Auto) (0.0-0.1) K/uL Nucleated RBC % /100WBC Nucleated RBCs # K/uL Sodium (136-146) mmol/L Potassium (3.5-5.1) mmol/L Chloride (98-110) mmol/L Carbon Dioxide (21-31) mmol/L BUN (6.0-23.0) mg/dL Creatinine (0.6-1.5) mg/dL Est Cr Clr Drug Dosing mL/min Estimated GFR (MDRD) ml/min Glucose (60-110) mg/dL Calcium (8.8-10.8) mg/dL SOLANGE Results - Last 24 hrs: Microbiology 09/27/16 08:45 Stool Occult Blood (SOLANGE) - Final Stool / Feces - Stool, Liquid POSITIVE OCCULT BLOOD Med Orders - Current: Current Medications Discontinued Medications Acetaminophen (Tylenol) 650 mg PO Q4H PRN PRN Reason: Pain Fentanyl (Sublimaze) Confirm Administered Dose 100 mcg .ROUTE .STK-MED ONE Stop: 09/27/16 11:08 Pantoprazole Sodium 80 mg/ (Sodium Chloride) 10 mls @ 300 mls/hr IVPUSH NOW ONE Stop: 09/26/16 15:01 Last Admin: 09/26/16 15:53 Dose: 300 mls/hr Pantoprazole Sodium 80 mg/ (Sodium Chloride) 100 mls @ 10 mls/hr IV Q10H CALEB Last Admin: 09/27/16 10:54 Dose: 10 mls/hr Midazolam HCl (Versed 1 Mg/Ml) Confirm Administered Dose 2 mg .ROUTE .STK-MED ONE Stop: 09/27/16 11:08 Ondansetron HCl (Zofran) 4 mg IVPUSH Q4H PRN PRN Reason: Nausea Propofol (Diprivan 20 Ml) Confirm Administered Dose 200 mg .ROUTE .STK-MED ONE Stop: 09/27/16 11:08 Sodium Chloride (Saline Flush) 2.5 ml FLUSH ASDIRECTED PRN PRN Reason: Keep Vein Open Sucralfate (Carafate) 1 gm PO QIDACANDBED [facility] Addendum entered and electronically signed by Xochitl Peralta NP 09/27/16 15: 10: Discharge Summary - Hospital Course Free Text/Narrative:: Stool sample sent today,09/27/2016 just returned with positive occult blood. Brief History: This 46 year old male with pmh of GERD, H. 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 He reported he was leaning over and felt very light headed, almost to the point of blacking out but didn't. He thought maybe he needed to eat and drink fluids, which he did and this did not relieve the feelings of lightheadedness. He then came to the ED for evaluation. He reported feeling extremely fatigued over the last week, and did notice some more fatigue with workouts in the last few weeks. He denies hematemesis, black or bloody BMs, denies presence of hemorrhoids. He denies abdominal pain, N/V no diarrhea or constipation. He denies frequent NSAID use, very rare alcohol use, no tobacco products or recreational drug use. He reports he had an EGD last year with Dr Dang, in which a hiatal hernia was noted and after biopsies, severe chronic active gastritis noted along with H. pylori. He reports being treated with 3 medications and completing that course . He has since stayed on Protonix daily. He reports the GERD is tolerable, but he continues to wake up at night with severe heartburn. He does sleep propped up with pillows and tries not eating close to bedtime to reduce GERD symptoms. He denies any chest pain or SOB. In the ED anemia noted, with Hgb 6.3, Hct 23.2, microcytic, hypchromic. BMP WNL. VS stable. He was admitted due to anemia secondary to suspected upper GI bleed. General surgery to evaluate for possible EGD or further diagnostic study recommendations. PCP, SANDRA Riggins - Discharge Data Discharge Date: 09/27/16 Discharge Disposition: Home, Self-Care 01 Condition: Good - Discharge Diagnosis/Problem(s) (1) Near syncope SNOMED Code(s): 467361585 ICD Code: R55 - SYNCOPE AND COLLAPSE Status: Acute Priority: Medium Current Visit: Yes (2) Anemia SNOMED Code(s): 317469499 ICD Code: D64.9 - ANEMIA, UNSPECIFIED Status: Acute Priority: High Current Visit: Yes Qualifiers: Anemia type: other cause Other causes of anemia: acute posthemorrhagic Qualified Code(s): D62 - Acute posthemorrhagic anemia (3) History of Helicobacter pylori infection SNOMED Code(s): 174981880972614 ICD Code: Z86.19 - PERSONAL HISTORY OF OTHER INFECTIOUS AND PARASITIC DISEASES Status: Chronic Priority: Medium Current Visit: Yes Problem Details: 2015 (4) GERD (gastroesophageal reflux disease) SNOMED Code(s): 848750196 ICD Code: K21.9 - GASTRO-ESOPHAGEAL REFLUX DISEASE WITHOUT ESOPHAGITIS Status: Chronic Current Visit: Yes Qualifiers: Esophagitis presence: esophagitis presence not specified Qualified Code(s) : K21.9 - Gastro-esophageal reflux disease without esophagitis - Patient Summary/Data Operative Procedure(s) Performed: EGD w/biopsy Consults: Consultations 09/26/16 15:02 Consult to Physician [CONS] Routine - Patient Instructions Diet: Regular Diet as Tolerated Activity: As Tolerated Driving: May Drive Today Showering/Bathing: May Shower Notify Provider of: Fever, Increased Pain, Swelling and Redness, Drainage, Nausea and/or Vomiting - Discharge Plan Prescriptions/Med Rec: Iron Ag,Ps/C/Fa6/B12/Zn/SA/Sto [Niferex Tablet] 1 each PO BID #120 tablet Pantoprazole Sodium [Protonix] 40 mg PO BID #60 tablet. Sucralfate [Carafate] 1 gm PO QIDACANDBED #120 tablet Home Medications: Home Meds Multivit with Calcium,Iron,Min [Essential Daily] 1 tab PO DAILY 09/26/16 [ History] Sildenafil [Revatio] 60 mg PO ASDIRECTED PRN 09/26/16 [History] Zinc 50 mg PO DAILY 09/26/16 [History] Iron Ag,Ps/C/Fa6/B12/Zn/SA/Sto [Niferex Tablet] 1 each PO BID #120 tablet [Rx] Pantoprazole Sodium [Protonix] 40 mg PO BID #60 tablet. 09/27/16 [Rx] Sucralfate [Carafate] 1 gm PO QIDACANDBED #120 tablet 09/27/16 [Rx] Patient Handouts: Anemia, Nonspecific, Iron tablets, capsules, extended- release tablets, Sucralfate tablets, Pantoprazole tablets Referrals: Cesia Fournier NP [Nurse Practitioner] - 10/02/16 10:30 am Jean-Pierre May MD [Ordering Only Provider] - 11/27/16 3:30 pm - Patient Data Vitals - Most Recent: Last Vital Signs Temp 98.4 F 09/27/16 12:52 Pulse 73 09/27/16 12:52 Resp 17 09/27/16 12:52 BP 128/76 09/27/16 12:52 Pulse Ox 97 09/27/16 12:52 Weight - Most Recent: 108.3 kg I&O - Last 24 hours: Intake & Output 09/27/16 09/27/16 09/27/16 06:59 14:59 22:59 Intake Total 1400 600 Output Total 1050 Balance 350 600 Lab Results - Last 24 hrs: Laboratory Results - last 24 hr 09/26/16 09/27/16 09/27/16 Range/Units 21:25 06:35 06:35 WBC 7.39 (4.0-11.0) K/uL RBC 4.97 (4.50-5.90) M/uL Hgb 7.5 L 9.1 L (13.0-17.0) g/dL Hct 26.6 L 30.8 L (38.0-50.0) % MCV 62.0 L (80.0-98.0) fL MCH 18.3 L (27.0-32.0) pg MCHC 29.5 L (31.0-37.0) g/dL RDW Std Deviation 57.9 (28.0-62.0) fl RDW Coeff of Branden 27 H (11.0-15.0) % Plt Count 325 (150-400) K/uL Neut % (Auto) 57.7 (48.0-80.0) % Lymph % (Auto) 29.1 (16.0-40.0) % [place] % (Auto) 9.6 (0.0-15.0) % Eos % (Auto) 3.2 (0.0-7.0) % Baso % (Auto) 0.4 (0.0-1.5) % Neut # (Auto) 4.3 (1.4-5.7) K/uL Lymph # (Auto) 2.2 (0.6-2.4) K/uL [place] # (Auto) 0.7 (0.0-0.8) K/uL Eos # (Auto) 0.2 (0.0-0.7) K/uL Baso # (Auto) 0.0 (0.0-0.1) K/uL Nucleated RBC % 0.0 /100WBC Nucleated RBCs # 0 K/uL Sodium 138 (136-146) mmol/L Potassium 4.9 (3.5-5.1) mmol/L Chloride 110 (98-110) mmol/L Carbon Dioxide 20 L (21-31) mmol/L BUN 8 (6.0-23.0) mg/dL Creatinine 0.8 (0.6-1.5) mg/dL Est Cr Clr Drug Dosing 140.83 mL/min Estimated GFR (MDRD) > 60.0 ml/min Glucose 83 (60-110) mg/dL Calcium 9.4 (8.8-10.8) mg/dL 09/27/16 Range/Units 13:52 WBC (4.0-11.0) K/uL RBC (4.50-5.90) M/uL Hgb 9.7 L (13.0-17.0) g/dL Hct 33.5 L (38.0-50.0) % MCV (80.0-98.0) fL MCH (27.0-32.0) pg MCHC (31.0-37.0) g/dL RDW Std Deviation (28.0-62.0) fl RDW Coeff of Branden (11.0-15.0) % Plt Count (150-400) K/uL Neut % (Auto) (48.0-80.0) % Lymph % (Auto) (16.0-40.0) % [place] % (Auto) (0.0-15.0) % Eos % (Auto) (0.0-7.0) % Baso % (Auto) (0.0-1.5) % Neut # (Auto) (1.4-5.7) K/uL Lymph # (Auto) (0.6-2.4) K/uL [place] # (Auto) (0.0-0.8) K/uL Eos # (Auto) (0.0-0.7) K/uL Baso # (Auto) (0.0-0.1) K/uL Nucleated RBC % /100WBC Nucleated RBCs # K/uL Sodium (136-146) mmol/L Potassium (3.5-5.1) mmol/L Chloride (98-110) mmol/L Carbon Dioxide (21-31) mmol/L BUN (6.0-23.0) mg/dL Creatinine (0.6-1.5) mg/dL Est Cr Clr Drug Dosing mL/min Estimated GFR (MDRD) ml/min Glucose (60-110) mg/dL Calcium (8.8-10.8) mg/dL SOLANGE Results - Last 24 hrs: Microbiology 09/27/16 08:45 Stool Occult Blood (SOLANGE) - Final Stool / Feces - Stool, Liquid POSITIVE OCCULT BLOOD Med Orders - Current: Current Medications Acetaminophen (Tylenol) 650 mg PO Q4H PRN PRN Reason: Pain Pantoprazole Sodium 80 mg/ (Sodium Chloride) 100 mls @ 10 mls/hr IV Q10H CALEB Last Admin: 09/27/16 10:54 Dose: 10 mls/hr Ondansetron HCl (Zofran) 4 mg IVPUSH Q4H PRN PRN Reason: Nausea Sodium Chloride (Saline Flush) 2.5 ml FLUSH ASDIRECTED PRN PRN Reason: Keep Vein Open Sucralfate (Carafate) 1 gm PO QIDACANDBED CALEB Discontinued Medications Fentanyl (Sublimaze) Confirm Administered Dose 100 mcg .ROUTE .STK-MED ONE Stop: 09/27/16 11:08 Pantoprazole Sodium 80 mg/ (Sodium Chloride) 10 mls @ 300 mls/hr IVPUSH NOW ONE Stop: 09/26/16 15:01 Last Admin: 09/26/16 15:53 Dose: 300 mls/hr Midazolam HCl (Versed 1 Mg/Ml) Confirm Administered Dose 2 mg .ROUTE .STK-MED ONE Stop: 09/27/16 11:08 Propofol (Diprivan 20 Ml) Confirm Administered Dose 200 mg .ROUTE .STK-MED ONE Stop: 09/27/16 11:08 Original Note: Discharge Summary - Hospital Course Brief History: This 46 year old male with pmh of GERD, H. 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 He reported he was leaning over and felt very light headed, almost to the point of blacking out but didn't. He thought maybe he needed to eat and drink fluids, which he did and this did not relieve the feelings of lightheadedness. He then came to the ED for evaluation. He reported feeling extremely fatigued over the last week, and did notice some more fatigue with workouts in the last few weeks. He denies hematemesis, black or bloody BMs, denies presence of hemorrhoids. He denies abdominal pain, N/V no diarrhea or constipation. He denies frequent NSAID use, very rare alcohol use, no tobacco products or recreational drug use. He reports he had an EGD last year with Dr Dang, in which a hiatal hernia was noted and after biopsies, severe chronic active gastritis noted along with H. pylori. He reports being treated with 3 medications and completing that course . He has since stayed on Protonix daily. He reports the GERD is tolerable, but he continues to wake up at night with severe heartburn. He does sleep propped up with pillows and tries not eating close to bedtime to reduce GERD symptoms. He denies any chest pain or SOB. In the ED anemia noted, with Hgb 6.3, Hct 23.2, microcytic, hypchromic. BMP WNL. VS stable. He was admitted due to anemia secondary to suspected upper GI bleed. General surgery to evaluate for possible EGD or further diagnostic study recommendations. PCP, SANDRA Riggins - Discharge Data Discharge Date: 09/27/16 Discharge Disposition: Home, Self-Care 01 Condition: Good - Discharge Diagnosis/Problem(s) (1) Near syncope SNOMED Code(s): 322088904 ICD Code: R55 - SYNCOPE AND COLLAPSE Status: Acute Priority: Medium Current Visit: Yes (2) Anemia SNOMED Code(s): 070660265 ICD Code: D64.9 - ANEMIA, UNSPECIFIED Status: Acute Priority: High Current Visit: Yes Qualifiers: Anemia type: other cause Other causes of anemia: acute posthemorrhagic Qualified Code(s): D62 - Acute posthemorrhagic anemia (3) History of Helicobacter pylori infection SNOMED Code(s): 864168423278775 ICD Code: Z86.19 - PERSONAL HISTORY OF OTHER INFECTIOUS AND PARASITIC DISEASES Status: Chronic Priority: Medium Current Visit: Yes Problem Details: 2016 (4) GERD (gastroesophageal reflux disease) SNOMED Code(s): 050197365 ICD Code: K21.9 - GASTRO-ESOPHAGEAL REFLUX DISEASE WITHOUT ESOPHAGITIS Status: Chronic Current Visit: Yes Qualifiers: Esophagitis presence: esophagitis presence not specified Qualified Code(s) : K21.9 - Gastro-esophageal reflux disease without esophagitis - Patient Summary/Data Operative Procedure(s) Performed: EGD w/biopsy Consults: Consultations 09/26/16 15:02 Consult to Physician [CONS] Routine - Patient Instructions Diet: Regular Diet as Tolerated Activity: As Tolerated Driving: May Drive Today Showering/Bathing: May Shower Notify Provider of: Fever, Increased Pain, Swelling and Redness, Drainage, Nausea and/or Vomiting - Discharge Plan Prescriptions/Med Rec: Iron Ag,Ps/C/Fa6/B12/Zn/SA/Sto [Niferex Tablet] 1 each PO BID #120 tablet Pantoprazole Sodium [Protonix] 40 mg PO BID #60 tablet. Sucralfate [Carafate] 1 gm PO QIDACANDBED #120 tablet Home Medications: Home Meds Multivit with Calcium,Iron,Min [Essential Daily] 1 tab PO DAILY 09/26/16 [ History] Sildenafil [Revatio] 60 mg PO ASDIRECTED PRN 09/26/16 [History] Zinc 50 mg PO DAILY 09/26/16 [History] Iron Ag,Ps/C/Fa6/B12/Zn/SA/Sto [Niferex Tablet] 1 each PO BID #120 tablet [Rx] Pantoprazole Sodium [Protonix] 40 mg PO BID #60 tablet. 09/27/16 [Rx] Sucralfate [Carafate] 1 gm PO QIDACANDBED #120 tablet 09/27/16 [Rx] Patient Handouts: Anemia, Nonspecific Referrals: Cesia Fournier NP [Nurse Practitioner] - 10/02/16 10:30 am Jean-Pierre May MD [Ordering Only Provider] - 11/27/16 3:30 pm - Discharge Summary/Plan Comment DC Time >30 min.: Yes Discharge Summary/Plan Comment: Discharge diagnoses: Anemia Chronic gastritis Hiatal hernia Gato Danielle was admitted and transfused with 4 units of PRBCs, hgb elevated to 9.7. Iron studies revealed iron deficiency anemia, microcytic. EGD was performed by Dr. Mahmood, which revealed only mild chronic gastritis and hiatal hernia. He recommended Protonix BID with Carafate for at least the next month. He also recommended follow up with GI specialist to perform colonoscopy and possibly capsule endoscopy to evaluate small bowel more thoroughly as well. Hemoccult was negative during stay. He reports his father has a history of colon cancer and recently had approximately 1 1/2 feet of colon removed. He denies any elenita blood or black BMs, no changes to bowel habits and no abdominal pain. Hgb is stable today. Will discharge home with Protonix, Carafate and Iron supplementation. H pylori biopsy pending along with peripheral smear on discharge. Appointment with PCP, Cesia Fournier has been arranged on SaturdayOctober 02. Would recommend checking hgb again and following up on H. Pylori and peripheral smear results. He is to return to ED or clinic if concerns should arise. - General Info Date of Service: 09/27/16 Admission Dx/Problem (Free Text: Admission Diagnosis/Problem Admission Diagnosis/Problem Anemia Subjective Update: Doing well after EGD. Tolerating regular diet, hgb stable at 9.7. Will discharge home. Functional Status: Reports: pain controlled, tolerating diet, ambulating, urinating - Review of Systems General: Reports: No Symptoms. Denies: Fever HEENT: Reports: no symptoms Pulmonary: Reports: no symptoms. Denies: shortness of breath Cardiovascular: Reports: No Symptoms. Denies: Chest Pain, Palpitations Gastrointestinal: Denies: Abdominal pain, Constipation, Melena, Nausea, Vomiting - Patient Data Vitals - Most Recent: Last Vital Signs Temp 98.4 F 09/27/16 12:52 Pulse 73 09/27/16 12:52 Resp 17 09/27/16 12:52 BP 128/76 09/27/16 12:52 Pulse Ox 97 09/27/16 12:52 Weight - Most Recent: 108.3 kg I&O - Last 24 hours: Intake & Output 09/26/16 09/27/16 09/27/16 22:59 06:59 14:59 Intake Total 762 1400 600 Output Total 300 1050 Balance 462 350 600 Lab Results - Last 24 hrs: Laboratory Results - last 24 hr 05/09/27/16 09/27/16 Range/Units 21:25 06:35 06:35 WBC 7.39 (4.0-11.0) K/uL RBC 4.97 (4.50-5.90) M/uL Hgb 7.5 L 9.1 L (13.0-17.0) g/dL Hct 26.6 L 30.8 L (38.0-50.0) % MCV 62.0 L (80.0-98.0) fL MCH 18.3 L (27.0-32.0) pg MCHC 29.5 L (31.0-37.0) g/dL RDW Std Deviation 57.9 (28.0-62.0) fl RDW Coeff of Branden 27 H (11.0-15.0) % Plt Count 325 (150-400) K/uL Neut % (Auto) 57.7 (48.0-80.0) % Lymph % (Auto) 29.1 (16.0-40.0) % [place] % (Auto) 9.6 (0.0-15.0) % Eos % (Auto) 3.2 (0.0-7.0) % Baso % (Auto) 0.4 (0.0-1.5) % Neut # (Auto) 4.3 (1.4-5.7) K/uL Lymph # (Auto) 2.2 (0.6-2.4) K/uL [place] # (Auto) 0.7 (0.0-0.8) K/uL Eos # (Auto) 0.2 (0.0-0.7) K/uL Baso # (Auto) 0.0 (0.0-0.1) K/uL Nucleated RBC % 0.0 /100WBC Nucleated RBCs # 0 K/uL Sodium 138 (136-146) mmol/L Potassium 4.9 (3.5-5.1) mmol/L Chloride 110 (98-110) mmol/L Carbon Dioxide 20 L (21-31) mmol/L BUN 8 (6.0-23.0) mg/dL Creatinine 0.8 (0.6-1.5) mg/dL Est Cr Clr Drug Dosing 140.83 mL/min Estimated GFR (MDRD) > 60.0 ml/min Glucose 83 (60-110) mg/dL Calcium 9.4 (8.8-10.8) mg/dL 09/27/16 Range/Units 13:52 WBC (4.0-11.0) K/uL RBC (4.50-5.90) M/uL Hgb 9.7 L (13.0-17.0) g/dL Hct 33.5 L (38.0-50.0) % MCV (80.0-98.0) fL MCH (27.0-32.0) pg MCHC (31.0-37.0) g/dL RDW Std Deviation (28.0-62.0) fl RDW Coeff of Branden (11.0-15.0) % Plt Count (150-400) K/uL Neut % (Auto) (48.0-80.0) % Lymph % (Auto) (16.0-40.0) % [place] % (Auto) (0.0-15.0) % Eos % (Auto) (0.0-7.0) % Baso % (Auto) (0.0-1.5) % Neut # (Auto) (1.4-5.7) K/uL Lymph # (Auto) (0.6-2.4) K/uL [place] # (Auto) (0.0-0.8) K/uL Eos # (Auto) (0.0-0.7) K/uL Baso # (Auto) (0.0-0.1) K/uL Nucleated RBC % /100WBC Nucleated RBCs # K/uL Sodium (136-146) mmol/L Potassium (3.5-5.1) mmol/L Chloride (98-110) mmol/L Carbon Dioxide (21-31) mmol/L BUN (6.0-23.0) mg/dL Creatinine (0.6-1.5) mg/dL Est Cr Clr Drug Dosing mL/min Estimated GFR (MDRD) ml/min Glucose (60-110) mg/dL Calcium (8.8-10.8) mg/dL [facility] Results - Last 24 hrs: Microbiology 09/27/16 08:45 Stool Occult Blood ([facility]) - Final Stool / Feces - Stool, Liquid POSITIVE OCCULT BLOOD Med Orders - Current: Current Medications Acetaminophen (Tylenol) 650 mg PO Q4H PRN PRN Reason: Pain Pantoprazole Sodium 80 mg/ (Sodium Chloride) 100 mls @ 10 mls/hr IV Q10H [facility] Last Admin: 09/27/16 10:54 Dose: 10 mls/hr Ondansetron HCl (Zofran) 4 mg IVPUSH Q4H PRN PRN Reason: Nausea Sodium Chloride (Saline Flush) 2.5 ml FLUSH ASDIRECTED PRN PRN Reason: Keep Vein Open Sucralfate (Carafate) 1 gm PO QIDACANDBED [facility] Discontinued Medications Fentanyl (Sublimaze) Confirm Administered Dose 100 mcg .ROUTE .STK-MED ONE Stop: 09/27/16 11:08 Pantoprazole Sodium 80 mg/ (Sodium Chloride) 10 mls @ 300 mls/hr IVPUSH NOW ONE Stop: 09/26/16 15:01 Last Admin: 09/26/16 15:53 Dose: 300 mls/hr Midazolam HCl (Versed 1 Mg/Ml) Confirm Administered Dose 2 mg .ROUTE .STK-MED ONE Stop: 09/27/16 11:08 Propofol (Diprivan 20 Ml) Confirm Administered Dose 200 mg .ROUTE .STK-MED ONE Stop: 09/27/16 11:08 - Exam General: Reports: alert, oriented, cooperative, no acute distress Lungs: Reports: Clear to auscultation, Normal respiratory effort Cardiovascular: Reports: Regular Rate, Regular Rhythm Abdomen: Reports: bowel sounds present, soft, no tenderness, no distension Rectal (Males) Exam: Heme - Stool Neurological: Reports: no new focal deficit Psy/Mental Status: Reports: alert, normal affect, normal mood *Q Meaningful Use (DIS) - VTE *Q VTE Criteria *Q: VTE Pharmacological Contraindications *Q: Risk of Bleeding - Stroke *Q Stroke Criteria *Q: - AMI *Q AMI Criteria *Q:
[2016-09-27] MEDS ORDERED: Iron Sucrose Complex 500 MG in Sodium Chloride 0.9% 250 ML IV ONE (15:34)
[2016-09-27] MEDS ORDERED: Sucralfate Suspension 1 GM/10 ML Cup PO SCH (17:00)
--- NOTE | 2016-09-27 17:04 | OR ---
SURGEON: Ariel Mahmood M.D. DATE OF PROCEDURE: 09/27/2016 OPERATION PERFORMED: Esophagogastroduodenoscopy with biopsy. ANESTHESIA: MAC. ASA CLASSIFICATION: II. PREOPERATIVE DIAGNOSES: 1. New onset anemia. 2. History of Helicobacter pylori gastritis. POSTOPERATIVE DIAGNOSES: 1. Mild gastritis, no acute ulcerations. 2. Hiatal hernia. DESCRIPTION OF PROCEDURE: The patient was taken to the endoscopy room and positioned on the endoscopy table in the supine position. Time-out was called for appropriate identification of the patient and procedure. Monitored anesthesia care was provided. The bite block was placed between the patient's teeth. The gastroscope was inserted into the mouth and advanced without difficulty through the esophagus and stomach into the duodenum where examination was carried out in a retrograde fashion. I do not see any fresh blood in the upper GI tract. The duodenum shows no acute inflammatory changes or ulcerations. The gastroscope was withdrawn into the stomach, which does show a mild gastritis. No acute inflammatory changes or ulcerations were noted. The gastroscope was retroflexed to visualize the proximal stomach. No proximal lesions were identified other than a hiatal hernia. The gastroscope was then straightened and slowly withdrawn carefully visualizing the greater and lesser curvature. No acute ulcerations were noted. The GE junction was well defined despite a hiatal hernia. The esophagus demonstrated good contractility. No mid or proximal lesions were identified. The vocal cords were briefly visualized as the scope was withdrawn and noted to move symmetrically. The gastroscope was then removed with the patient having tolerated the procedure well. He was taken to recovery room in stable condition. KINGSLEY / DA /[id number]
--- NOTE | 2016-09-27 18:53 | PCM48HPAN ---
Post Anesthesia Note - EVALUATION WITHIN 48HRS OF ANESTHETIC Vital Signs in Normal Range: Yes Patient Participated in Evaluation: Yes Respiratory Function Stable: Yes Airway Patent: Yes Cardiovascular Function Stable: Yes Hydration Status Stable: Yes Pain Control Satisfactory: Yes Nausea and Vomiting Control Satisfactory: Yes Mental Status Recovered: Yes
== END 2016-09-27 15:15 | disposition home or self-care (01) | DRG 663 ==
LOC: MW.ED 11:02 → MW.MS 14:34 → EEVIPCON 14:34
PROVIDERS: ADMIT Internal Medicine; ATTEND Internal Medicine
PROC: 0DJ08ZZ Inspection of Upper Intestinal Tract, Via Natural or Artificial Opening Endoscopic (ICD-10-PCS; principal; 2016-09-27)
PROC: 30233N1 Transfusion of Nonautologous Red Blood Cells into Peripheral Vein, Percutaneous Approach (ICD-10-PCS; 2016-09-27)
DX: D62 Acute posthemorrhagic anemia (principal); R55 Syncope and collapse; K21.9 Gastro-esophageal reflux disease without esophagitis; Z86.19 Personal history of other infectious and parasitic diseases; K29.51 Unspecified chronic gastritis with bleeding; K44.9 Diaphragmatic hernia without obstruction or gangrene; Z89.512 Acquired absence of left leg below knee; Z79.899 Other long term (current) drug therapy
CPT/HCPCS: 00740; 36415; 36430; 80048; 80053; 80305; 81001; 82272; 82607; 82728; 82746; 83550; 85014; 85018; 85025; 85045; 86850; 86900; 86901; 86920; 86921; 86922; 88104; 88305; 88312; 93005; 99283; 99285-25; C9113; J1756; J2250; J2704; J3010; J7030; J7050; P9016

== ENCOUNTER 2016-10-07 22:09 | Emergency (ER) | payer BC ==
[2016-10-07] MEDS ORDERED: Sodium Chloride 0.9% 1,000 ML IV ONE (22:18)
--- NOTE | 2016-10-07 22:27 | EDM.PDOC ---
ED HPI GENERAL MEDICAL PROBLEM - General Chief Complaint: Neurological Problem Stated Complaint: LIGHT HEADED, DIARRHEA Time Seen by Provider: 10/07/16 22:16 - History of Present Illness INITIAL COMMENTS - FREE TEXT/NARRATIVE: HISTORY AND PHYSICAL: History of present illness: Patient is a 46-year-old white male history of anemia for which he was admitted recently and transfused 4 units he had an exhaustive workup inclusive of upper and lower GI etiology was thought to be related to a GI source as yet to be identified as well as iron deficiency he presents today with dizziness and weakness he states this is similar to prior episodes he is somewhat anxious he denies chest pain shortness of breath vomiting or other concerns Review of systems: As per history of present illness and below otherwise all systems reviewed and negative. Past medical history: As per history of present illness and as reviewed below otherwise noncontributory. Surgical history: As per history of present illness and as reviewed below otherwise noncontributory. Social history: No reported history of drug or alcohol abuse. Family history: As per history of present illness and as reviewed below otherwise noncontributory. Physical exam: HEENT: Atraumatic, normocephalic, pupils reactive, negative for conjunctival pallor or scleral icterus, mucous membranes moist, throat clear, neck supple, nontender, trachea midline. Lungs: Clear to auscultation, breath sounds equal bilaterally, chest nontender. Heart: S1S2, regular, negative for clicks, rubs, or JVD. Abdomen: Soft, nondistended, nontender. Negative for masses or hepatosplenomegaly. Negative for costovertebral tenderness. Pelvis: Stable nontender. Genitourinary: Deferred. Rectal: Deferred. Extremities: Left lower extremity amputation noted Neuro: Awake, alert, oriented. Cranial nerves II through XII unremarkable. Cerebellum unremarkable. Motor and sensory unremarkable throughout. Exam nonfocal. Diagnostics: CBC CMP PT/INR EKG chest x-ray type and screen Therapeutics: Normal saline 1 L bolus Impression: #1 history of anemia #2 dizziness Definitive disposition and diagnosis as appropriate pending reevaluation and review of above. - Related Data Allergies Allergy/AdvReac Type Severity Reaction Status Date / Time No Known Allergies Allergy Verified 10/07/16 22:13 Home Meds: Home Meds Sildenafil [Revatio] 60 mg PO ASDIRECTED PRN 09/26/16 [History] Zinc 50 mg PO DAILY 09/26/16 [History] Pantoprazole Sodium [Protonix] 40 mg PO BID #60 tablet. 09/27/16 [Rx] Sucralfate [Carafate] 1 gm PO QIDACANDBED #120 tablet 09/27/16 [Rx] Past Medical History - Past Health History Medical/Surgical History: Denies Medical/Surgical History HEENT History: Reports: Impaired Vision Other HEENT History: wears glasses/contacts Cardiovascular History: Reports: None. Denies: Blood Clots/VTE/DVT, CAD, High Cholesterol, Hypertension, [place] Respiratory History: Reports: None. Denies: Asthma, COPD, PE, Sleep Apnea Gastrointestinal History: Reports: GERD, Helicobacter Pylori, Hiatal Hernia Genitourinary History: Reports: None. Denies: Acute Renal Failure, Chronic Renal Insuffiency Musculoskeletal History: Reports: Amputation (L BKA secondary to work accident.) Neurological History: Reports: Concussion, Headaches, Chronic Other Neuro History: has frequent headaches due to concussion during work accident Psychiatric History: Reports: None Endocrine/Metabolic History: Reports: None. Denies: Diabetes, Type II, Hypothyroidism Hematologic History: Reports: None Immunologic History: Reports: None Oncologic (Cancer) History: Reports: None Dermatologic History: Reports: None - Infectious Disease History Infectious Disease History: Reports: MRSA - Past Surgical History Head Surgeries/Procedures: Reports: None HEENT Surgical History: Reports: None Cardiovascular Surgical History: Reports: None Respiratory Surgical History: Reports: None GI Surgical History: Reports: Appendectomy, EGD Male Surgical History: Reports: None Endocrine Surgical History: Reports: None Neurological Surgical History: Reports: None Musculoskeletal Surgical History: Reports: Amputation Other Musculoskeletal Surgeries/Procedures:: 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, proceeded by surgery on his left foot in attempt to save it Oncologic Surgical History: Reports: None Social & Family History - Family History Family Medical History: Noncontributory - Tobacco Use Smoking Status *Q: Never Smoker Second Hand Smoke Exposure: No - Caffeine Use Caffeine Use: Reports: None Caffeine Use Comment: 1 cup daily - Alcohol Use Days Per Week of Alcohol Use: 0 - Recreational Drug Use Recreational Drug Use: No Drug Use in Last 12 Months: No - Living Situation & Occupation Living situation: Reports: , with Family Occupation: Employed ED ROS GENERAL - Review of Systems Review Of Systems: ROS reveals no pertinent complaints other than HPI. ED EXAM, GENERAL - Physical Exam Exam: See Below (See dictation) Course - Vital Signs Last Recorded V/S: Last Vital Signs Temp 37.2 C 10/07/16 23:14 Pulse 72 10/07/16 23:14 Resp 16 10/07/16 23:14 BP 140/72 10/07/16 23:14 Pulse Ox 97 10/07/16 23:14 - Orders/Labs/Meds Orders: Active Orders 24 hr Category Date Time Status EKG 12 Lead [EKG Documentation Completion] [RC] STAT Care 10/07/16 22:16 Active Chest 1V Frontal [CR] Stat Exams 10/07/16 22:16 Ordered Labs: Laboratory Tests 10/07/16 10/07/16 10/07/16 Range/Units 22:25 22:25 22:25 WBC 5.97 (4.0-11.0) K/uL RBC 5.39 (4.50-5.90) M/uL Hgb 10.1 L (13.0-17.0) g/dL Hct 35.2 L (38.0-50.0) % MCV 65.3 L (80.0-98.0) fL MCH 18.7 L (27.0-32.0) pg MCHC 28.7 L (31.0-37.0) g/dL RDW Std Deviation 68.9 H (28.0-62.0) fl RDW Coeff of Branden 31 H (11.0-15.0) % Plt Count 367 (150-400) K/uL Neut % (Auto) 46.0 L (48.0-80.0) % Lymph % (Auto) 39.5 (16.0-40.0) % Collier % (Auto) 11.1 (0.0-15.0) % Eos % (Auto) 2.7 (0.0-7.0) % Baso % (Auto) 0.7 (0.0-1.5) % Neut # (Auto) 2.8 (1.4-5.7) K/uL Lymph # (Auto) 2.4 (0.6-2.4) K/uL Collier # (Auto) 0.7 (0.0-0.8) K/uL Eos # (Auto) 0.2 (0.0-0.7) K/uL Baso # (Auto) 0.0 (0.0-0.1) K/uL Nucleated RBC % 0.0 /100WBC Nucleated RBCs # 0 K/uL Sodium 140 (136-146) mmol/L Potassium 4.3 (3.5-5.1) mmol/L Chloride 109 (98-110) mmol/L Carbon Dioxide 23 (21-31) mmol/L BUN 11 (6.0-23.0) mg/dL Creatinine 1.0 (0.6-1.5) mg/dL Est Cr Clr Drug Dosing 112.67 mL/min Estimated GFR (MDRD) > 60.0 ml/min Glucose 112 H (60-110) mg/dL Calcium 9.0 (8.8-10.8) mg/dL Total Bilirubin 0.4 (0.1-1.5) mg/dL AST 18 (5-40) IU/L ALT 25 (8-54) IU/L Alkaline Phosphatase 38 L (40-150) Total Protein 7.5 (6.0-8.0) g/dL Albumin 4.3 (3.5-5.0) g/dL Globulin 3.2 (2.0-3.5) g/dL Albumin/Globulin Ratio 1.3 (1.3-2.8) Blood Type O POSITIVE Antibody Screen NEGATIVE Meds: Medications Discontinued Medications Generic Name Dose Route Start Last Admin Trade Name Freq PRN Reason Stop Dose Admin Sodium Chloride 1,000 mls @ 999 mls/hr 10/07/16 22:18 10/07/16 22:28 Normal Saline IV 10/07/16 23:18 999 mls/hr .Bolus ONE Administration Departure - Departure Time of Disposition: 23:32 Disposition: Home, Self-Care 01 Condition: good Clinical Impression: Dizziness - Discharge Information Forms: ED Department Discharge Additional Instructions: The following information is given to patients seen in the emergency department who are being discharged to home. This information is to outline your options for follow-up care. We provide all patients seen in our emergency department with a follow-up referral. The need for follow-up, as well as the timing and circumstances, are variable depending upon the specifics of your emergency department visit. If you don't have a primary care physician on staff, we will provide you with a referral. We always advise you to contact your personal physician following an emergency department visit to inform them of the circumstance of the visit and for follow-up with them and/or the need for any referrals to a consulting specialist. The emergency department will also refer you to a specialist when appropriate. This referral assures that you have the opportunity for followup care with a specialist. All of these measure are taken in an effort to provide you with optimal care, which includes your followup. Under all circumstances we always encourage you to contact your private physician who remains a resource for coordinating your care. When calling for followup care, please make the office aware that this follow-up is from your recent emergency room visit. If for any reason you are refused follow-up, please contact the [facility] emergency department at and asked to speak to the emergency department charge nurse. Followup primary medical doctor one to 2 days return as needed as discussed continue current medications - My Orders Last 24 Hours: My Active Orders 10/07/16 22:16 EKG 12 Lead [EKG Documentation Completion] [RC] STAT Chest 1V Frontal [CR] Stat - Assessment/Plan Last 24 Hours: My Active Orders 10/07/16 22:16 EKG 12 Lead [EKG Documentation Completion] [RC] STAT Chest 1V Frontal [CR] Stat
[2016-10-07 22:56] LABS: CHLORIDE,CL 109 mmol/L (98-110); SODIUM,NA 140 mmol/L (136-146)
[2016-10-07 23:41] VITALS: BP 135/70
--- NOTE | 2016-10-08 15:29 | CR ---
EXAM DATE: 10/07/16 PATIENT'S AGE: 46 Patient: CYNDI GONZALEZ Facility: [place], [place] Site . Site : [id number] Study: XRay Chest [id number] 10:35:07 PM Ordering Physician: Doctor Bob Final Report: INDICATION: LIGHTHEADED. TECHNIQUE: Chest 1 view. COMPARISON: None FINDINGS: No pneumothorax or pleural effusion. Lungs are clear. Cardiac and mediastinal contours are within normal limits. Upper abdomen and osseous structures as imaged show no acute abnormality. IMPRESSION: No acute cardiopulmonary disease. Dictated by: Derick Ro MD @ 10/07/2016 23:00:17 (Electronic Signature) Report Signed by Proxy. TOBY
== END 2016-10-07 23:39 | disposition home or self-care (01) ==
LOC: MW.ED 22:09
DX: R42 Dizziness and giddiness (principal); K21.9 Gastro-esophageal reflux disease without esophagitis; Z90.49 Acquired absence of other specified parts of digestive tract; Z98.890 Other specified postprocedural states; Z89.622 Acquired absence of left hip joint; Z79.899 Other long term (current) drug therapy
CPT/HCPCS: 36415; 71010; 80053; 85025; 86850; 86900; 86901; 96360; 99284; J7040; 93005

== ENCOUNTER 2017-06-12 08:11 | Emergency (ER) | payer OTHER, BC ==
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
[2017-06-12] MEDS ORDERED: traMADol 50 MG Tab PO ONE (08:52)
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
--- NOTE | 2017-06-12 08:59 | CT ---
EXAMINATION: CT cervical spine HISTORY: Pain COMPARISON: None TECHNIQUE: Axial CT images obtained through the cervical spine without contrast. Coronal and sagittal reconstructions obtained. FINDINGS: There is straightening of the normal cervical lordosis. The vertebral body heights appear m aintained. Mild marginal osteophytes and small osteophyte disc complexes noted within the lower cervi sushma spine from C5 to C7. No fracture or acute osseous abnormality. Bone mineralization is normal. Par avertebral soft tissues appear normal. Lung apices are clear. IMPRESSION: 1. Degenerative changes without acute findings noted within the cervical spine.
--- NOTE | 2017-06-12 09:07 | CR ---
EXAMINATION: Two-view chest (PA and Lateral views). HISTORY: Shortness of breath. Comparison: 10/07/2016. FINDINGS: The trachea is midline. The cardiomediastinal silhouette is within normal limits. No pulmonary infilt rates, effusions or pneumothorax. Mild perihilar interstitial prominence, grossly unchanged. Osseous structures appear unremarkable. IMPRESSION: No acute cardiopulmonary process.
[2017-06-12 10:35] LABS: CHLORIDE,CL 106 mmol/L (98-110); SODIUM,NA 138 mmol/L (136-146)
[2017-06-12 11:00] VITALS: BP 144/70
== END 2017-06-12 10:54 | disposition home or self-care (01) ==
LOC: MW.ED 08:11
DX: S16.1XXA Strain of muscle, fascia and tendon at neck level, initial encounter (principal); Z79.899 Other long term (current) drug therapy; V43.52XA Car driver injured in collision with other type car in traffic accident, initial encounter
CPT/HCPCS: 36415; 70450; 71046; 72125; 80053; 80305; 81003; 83690; 85025; 99285; A9270; G0390; G0480; 99284

== ENCOUNTER 2017-08-08 18:06 | Inpatient (IN) | payer BC ==
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
[2017-08-08 19:46] LABS: CHLORIDE,CL 105 mmol/L (98-107); SODIUM,NA 138 mmol/L (136-148)
[2017-08-08] MEDS ORDERED: Iopamidol 755 Mg/ML 100 ML Bottle IVPUSH STA (20:21)
[2017-08-09] MEDS: Morphine 4 MG/ML Syringe IVPUSH PRN ×4 (00:29→14:00)
[2017-08-09] MEDS ORDERED: cefTRIAXone 1,000 MG VIAL IVPUSH ONE (00:43)
[2017-08-09] MEDS ORDERED: cefTRIAXone 1,000 MG VIAL IVPUSH SCH (00:45)
[2017-08-09] MEDS ORDERED: cefTRIAXone 1 GM in Premix Bag 1 BAG IV ONE (01:41)
[2017-08-09] MEDS: oxyCODONE 5 MG Tab PO PRN ×3 (01:49→20:39)
[2017-08-09 05:44] LABS: CHLORIDE,CL 105 mmol/L (98-107); SODIUM,NA 137 mmol/L (136-148)
[2017-08-09] MEDS: Vancomycin 1.5 GM in Sodium Chloride 0.9% 500 ML IV SCH ×3 (05:46→20:28)
--- NOTE | 2017-08-09 09:42 | PCM.HP ---
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 He went to his PCP on Saturday after he popped a pimple in this area it become swollen , hot and red. He received Rocephin IM and bactrim prescription. It did initially improve then when he was working yesterday it again worsened, the pain and swelling become worse and the redness worsened but not to the extent it was initially. He came to the ED because the pain was unbearable. He reports there is sound clear to yellow drainage. He does have a history of this happening prior to medial aspect of L AC with MRSA. No fevers at home, no pain with movement of joints in the L arm, but there is pain with flexion of his bicep. No other complaints, no chest pain, SOB or cough. No abdominal pain or urinary symptoms. He reports he continues to have his GERD, but follows with Dr May in [place] and has a follow up with him shortly. He denies IV use of recreational drugs and no anabolic steroids. In the ED no leukocytosis noted, which is improved from clinic visit. Hgb 9.4. Humerus left CT obtained with shows subcutaneous abscess, 2.5 cm longitudinally and 1.5 cm deep, in the medial aspect of the upper arm, no gas, no humerus abnormality. he was given Vancomycin and admitted for cellulitis and abscess to L upper arm. PCP, Dr Hull. Left Upper Arm Pain Score (Numeric/FACES): 8 - Related Data Allergies/Adverse Reactions: Allergies Allergy/AdvReac Type Severity Reaction Status Date / Time No Known Allergies Allergy Verified 08/09/17 05:07 Home Medications: Home Meds Omeprazole Magnesium [Prilosec Otc] 20 mg PO DAILY 06/12/17 [History] Past Medical History - Past Health History Medical/Surgical History: Denies Medical/Surgical History HEENT History: Reports: Impaired Vision Other HEENT History: wears glasses/contacts Cardiovascular History: Reports: None. Denies: CAD, High Cholesterol, Hypertension, [place] Respiratory History: Reports: None Gastrointestinal History: Reports: GERD, Helicobacter Pylori, Hiatal Hernia Genitourinary History: Reports: None Musculoskeletal History: Reports: Amputation (L BKA from a work accident) Neurological History: Reports: Concussion, Headaches, Chronic Other Neuro History: has frequent headaches due to concussion during work accident Psychiatric History: Reports: None Endocrine/Metabolic History: Reports: None. Denies: Diabetes, Type II Hematologic History: Reports: None Immunologic History: Reports: None Oncologic (Cancer) History: Reports: None Dermatologic History: Reports: None - Infectious Disease History Infectious Disease History: Reports: MRSA - Past Surgical History Head Surgeries/Procedures: Reports: None HEENT Surgical History: Reports: None Cardiovascular Surgical History: Reports: None Respiratory Surgical History: Reports: None GI Surgical History: Reports: Appendectomy, Colonoscopy, EGD Male Surgical History: Reports: None Endocrine Surgical History: Reports: None Neurological Surgical History: Reports: None Musculoskeletal Surgical History: Reports: Amputation Other Musculoskeletal Surgeries/Procedures:: 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, proceeded by surgery on his left foot in attempt to save it Oncologic Surgical History: Reports: None Social & Family History - Family History Family Medical History: Noncontributory - Tobacco Use Smoking Status *Q: Never Smoker Second Hand Smoke Exposure: No - Caffeine Use Caffeine Use: Reports: Other Caffeine Use Comment: pre work out - Alcohol Use Days Per Week of Alcohol Use: 0 - Recreational Drug Use Recreational Drug Use: No Drug Use in Last 12 Months: No - Living Situation & Occupation Living situation: Reports: , with Family Occupation: Employed H&P Review of Systems - Review of Systems: Review Of Systems: See Below General: Reports: No Symptoms. Denies: Fever, Chills, Malaise, Weakness HEENT: Reports: No Symptoms. Denies: Headaches, Sinus Congestion, Sore Throat Pulmonary: Reports: No Symptoms. Denies: Shortness of Breath, Cough, Sputum Cardiovascular: Reports: No Symptoms. Denies: Chest Pain, Edema, Lightheadedness Gastrointestinal: Reports: Other (chronic GERD). Denies: Abdominal Pain, Black Stool, Bloody Stool, Nausea, Vomiting Genitourinary: Reports: No Symptoms. Denies: Dysuria, Frequency, Burning, Pain Musculoskeletal: Reports: No Symptoms. Denies: Neck Pain Skin: Reports: Erythema (L upper arm), Wound Neurological: Reports: No Symptoms Hematologic/Lymphatic: Reports: No Symptoms Immunologic: Reports: No Symptoms Exam - Exam Exam: See Below - Vital Signs Vital Signs: Last Vital Signs Temp 96.3 F 08/09/17 08:00 Pulse 64 08/09/17 08:00 Resp 20 08/09/17 08:00 BP 144/75 H 08/09/17 08:00 Pulse Ox 98 08/09/17 08:00 Weight: 112.491 kg - Exam General: Alert, Oriented, Cooperative HEENT: Conjunctiva Clear, Mucosa Moist & [place], Nares Patent, Posterior Pharynx Clear Neck: Supple, Trachea Midline, 2 Lungs: Clear to Auscultation, Normal Respiratory Effort Cardiovascular: Regular Rate, Regular Rhythm GI/Abdominal Exam: Normal Bowel Sounds, Soft, Non-Tender, No Organomegaly, No Distention, No Abnormal Bruit, No Mass, Pelvis Stable Back Exam: Normal Inspection, Full Range of Motion, NT Extremities: Normal Inspection, Normal Range of Motion, No Pedal Edema, Other ( L BKA, ) Skin: Wound (Erythema, induration with some fluctuance noted to medial aspect of mid bicep on L. Erythema is improved from initial markings from Saturday in clinic, but per patient has again worsened and pain is worse. Serous drainage noted with palpation. NO purulence at this time. ) Neuro Extensive - Mental Status: Alert, Oriented x3, Normal Mood/Affect, Normal Cognition Neuro Extensive - Motor, Sensory, Reflexes: CN II-XII Intact, Normal Gait Psychiatric: Alert, Normal Affect, Normal Mood - Patient Data Lab Results Last 24 hrs: Laboratory Results - last 24 hr 08/08/17 08/08/17 08/08/17 Range/Units 19:03 19:03 21:13 WBC 6.58 (4.0-11.0) K/uL RBC 5.40 (4.50-5.90) M/uL Hgb 9.5 L (13.0-17.0) g/dL Hct 33.1 L (38.0-50.0) % MCV 61.3 L (80.0-98.0) fL MCH 17.6 L (27.0-32.0) pg MCHC 28.7 L (31.0-37.0) g/dL RDW Std Deviation 46.4 (28.0-62.0) fl RDW Coeff of Branden 22 H (11.0-15.0) % Plt Count 345 (150-400) K/uL Neut % (Auto) 57.8 (48.0-80.0) % Lymph % (Auto) 28.0 (16.0-40.0) % [place] % (Auto) 12.5 (0.0-15.0) % Eos % (Auto) 1.2 (0.0-7.0) % Baso % (Auto) 0.5 (0.0-1.5) % Neut # (Auto) 3.8 (1.4-5.7) K/uL Lymph # (Auto) 1.8 (0.6-2.4) K/uL [place] # (Auto) 0.8 (0.0-0.8) K/uL Eos # (Auto) 0.1 (0.0-0.7) K/uL Baso # (Auto) 0.0 (0.0-0.1) K/uL Nucleated RBC % 0.0 /100WBC Nucleated RBCs # 0 K/uL Lactate 0.9 (0.20-2.00) mmol/L Sodium 138 (136-148) mmol/L Potassium 4.1 (3.5-5.1) mmol/L Chloride 105 (98-107) mmol/L Carbon Dioxide 24.4 (21.0-32.0) mmol/L BUN 11 (7.0-18.0) mg/dL Creatinine 0.9 (0.8-1.3) mg/dL Est Cr Clr Drug Dosing 123.88 mL/min Estimated GFR (MDRD) > 60.0 ml/min Glucose 92 (74-106) mg/dL Calcium 8.5 (8.5-10.1) mg/dL 08/09/17 08/09/17 Range/Units 05:06 05:06 WBC 8.06 (4.0-11.0) K/uL RBC 5.35 (4.50-5.90) M/uL Hgb 9.4 L (13.0-17.0) g/dL Hct 32.7 L (38.0-50.0) % MCV 61.1 L (80.0-98.0) fL MCH 17.6 L (27.0-32.0) pg MCHC 28.7 L (31.0-37.0) g/dL RDW Std Deviation 45.4 (28.0-62.0) fl RDW Coeff of Branden 22 H (11.0-15.0) % Plt Count 237 (150-400) K/uL Neut % (Auto) 60.1 (48.0-80.0) % Lymph % (Auto) 25.7 (16.0-40.0) % [place] % (Auto) 11.7 (0.0-15.0) % Eos % (Auto) 2.0 (0.0-7.0) % Baso % (Auto) 0.5 (0.0-1.5) % Neut # (Auto) 4.9 (1.4-5.7) K/uL Lymph # (Auto) 2.1 (0.6-2.4) K/uL [place] # (Auto) 0.9 H (0.0-0.8) K/uL Eos # (Auto) 0.2 (0.0-0.7) K/uL Baso # (Auto) 0.0 (0.0-0.1) K/uL Nucleated RBC % 0.0 /100WBC Nucleated RBCs # 0 K/uL Lactate (0.20-2.00) mmol/L Sodium 137 (136-148) mmol/L Potassium 4.9 (3.5-5.1) mmol/L Chloride 105 (98-107) mmol/L Carbon Dioxide 26.6 (21.0-32.0) mmol/L BUN 10 (7.0-18.0) mg/dL Creatinine 0.8 (0.8-1.3) mg/dL Est Cr Clr Drug Dosing 139.37 mL/min Estimated GFR (MDRD) > 60.0 ml/min Glucose 82 (74-106) mg/dL Calcium 8.7 (8.5-10.1) mg/dL Result Diagrams: 08/09/17 05:06 18 05:06 *Q Meaningful Use (ADM) - VTE *Q VTE Pharmacological Contraindications *Q: Risk of Bleeding - VTE Risk Assess *Q Each Risk Factor Represents 1 Point: Age 41 - 59 years Total Score 1 Point Risk Factors: 1 Each Risk Factor Represents 2 Points: None Total Score 2 Point Risk Factors: 0 Each Risk Factor Represents 3 Points: None Total Score 3 Point Risk Factors: 0 Each Risk Factor Represents 5 Points: None Total Score 5 Point Risk Factors: 0 Venous Thromboembolism Risk Factor Score *Q: 1 - Problem List (1) Cellulitis and abscess of upper arm and forearm SNOMED Code(s): 654156492 ICD Code: [id number] - Status: Acute Current Visit: Yes (2) Abscess SNOMED Code(s): 768280312 ICD Code: L02.91 - CUTANEOUS ABSCESS, UNSPECIFIED Status: Acute Current Visit: Yes (3) History of GI bleed SNOMED Code(s): 327092618 ICD Code: Z87.19 - PERSONAL HISTORY OF OTHER DISEASES OF THE DIGESTIVE SYSTEM Status: Chronic Current Visit: Yes (4) GERD (gastroesophageal reflux disease) SNOMED Code(s): 883213169 ICD Code: K21.9 - GASTRO-ESOPHAGEAL REFLUX DISEASE WITHOUT ESOPHAGITIS Status: Chronic Current Visit: No Qualifiers: Esophagitis presence: esophagitis presence not specified Qualified Code(s) : K21.9 - Gastro-esophageal reflux disease without esophagitis (5) History of Helicobacter pylori infection SNOMED Code(s): 69511227744374068 ICD Code: Z86.19 - PERSONAL HISTORY OF OTHER INFECTIOUS AND PARASITIC DISEASES Status: Chronic Priority: Medium Current Visit: No Problem Details: 2016 Problem List Initiated/Reviewed/Updated: Yes Orders Last 24hrs: Active Orders 24 hr Category Date Time Status Patient Status [ADT] Stat ADT 08/08/17 21:25 Active Notify Provider Consults [RC] ASDIRECTED Care 08/09/17 00:46 Active Oxygen Therapy [RC] PRN Care 08/09/17 00:44 Active Up ad Vianey [RC] ASDIRECTED Care 08/09/17 00:44 Active Vital Signs [RC] Q4H Care 08/09/17 00:44 Active Consult to Physician [CONS] Routine Cons 08/09/17 00:44 Active Nothing per Oral After Midnight Diet [DIET] Diet 08/09/17 Breakfast Active Humerus w Cont Lt [CT] Stat Exams 08/08/17 19:33 Taken VANCOMYCIN TROUGH [CHEM] Timed Lab 08/10/17 04:00 Ordered Morphine Med 08/09/17 00:13 Active 2 mg IVPUSH Q2H PRN Vancomycin 1.5 gm Med 08/09/17 05:00 Active Sodium Chloride 0.9% [Normal Saline] 500 ml IV Q8H Vancomycin Pharmacy to Dose [Pharmacy to Dose - Med 08/09/17 00:45 Pending Vancomycin] 1 dose .XX ASDIRECTED oxyCODONE Med 08/09/17 00:44 Active 5 mg PO Q4H PRN Sequential Compression Device [OM.PC] Per Unit Routine Oth 08/09/17 00:45 Ordered Resuscitation Status Routine Resus Stat 08/09/17 00:44 Ordered Medication Orders Vancomycin HCl 1.5 gm/ Sodium (Chloride) 500 mls @ 333.333 mls/hr IV Q8H [facility] Last Admin: 08/09/17 05:46 Dose: 333.333 mls/hr Morphine Sulfate (Morphine) 2 mg IVPUSH Q2H PRN PRN Reason: Pain Last Admin: 08/09/17 08:41 Dose: 2 mg Admin: 08/09/17 00:29 Dose: 2 mg Oxycodone HCl (Oxycodone) 5 mg PO Q4H PRN PRN Reason: Pain (moderate 4-6) Last Admin: 08/09/17 01:49 Dose: 5 mg Vancomycin HCl (Pharmacy To Dose - Vancomycin) 1 dose .XX ASDIRECTED [facility] Assessment/Plan Comment:: This 47 year old male admitted for cellulitis and abscess of L upper arm 1. Cellulitis and abscess: No leukocytosis. Continue Vancomycin for now. Afebrile. Dr Eastman, general surgery consulted for I&D. NPO pending I&D 2. GERD: Stable. Continue home medications. VTE prophylaxis: SCD to R leg. No pharmacologic treatment due to hx GI bleed, anemia
[2017-08-09] MEDS ORDERED: Lactated Ringers 1,000 ML IV SCH (11:45)
[2017-08-09] MEDS ORDERED: Lidocaine 1% 20 ML MDV INJECT ONE (13:21)
[2017-08-09] MEDS ORDERED: Lidocaine 1% with EPINEPHrine 1:100,000 20 ML MDV INJECT ONE (13:24)
--- NOTE | 2017-08-09 13:52 | PCM.SN ---
- Free Text/Narrative Note: pt seen, chart reviewed; ct documented L arm abscess; will i/d; r/b dw pt re bleeding/infection/incomplete, pt voiced understanding cx dict [id number];
--- NOTE | 2017-08-09 13:57 | PCM.OPNOTE ---
- General Post-Op/Procedure Note Date of Surgery/Procedure: 08/09/17 Operative Procedure(s): incision and drainage L arm abscess Findings: large amt of foul smelling liquid necrosis 100 cc gushing out; [id number] Pre Op Diagnosis: L arm abscess Post-Op Diagnosis: Same Anesthesia Technique: Local Primary Surgeon: Lb Watts Complications: None Condition: Fair Free Text/Narrative:: Intake & Output 08/08/17 08/09/17 08/09/17 22:59 06:59 14:59 Intake Total 1150 Balance 1150
--- NOTE | 2017-08-09 13:59 | PCM.SN ---
- Free Text/Narrative Note: id L arm abscess; wound packed with 1/4 " iodoform gauze; pt can have po diet from surg stand point. ok to dc home on po abx and pain scripts; drsg change with packing q day 1 wk; fu in 1 wk; thanks for the consult and care of this nice gentleman
--- NOTE | 2017-08-09 14:25 | CT ---
EXAM DATE: 08/08/17 PATIENT'S AGE: 47 Patient: CYNDI GONZALEZ Facility: [place], [place] Site . Site : [id number] Study: CT Extremity Left humerus w cont [id number]/5/2018 8:38:26 PM Ordering Physician: Doctor Bob Final Report: INDICATION: Pain, redness, swelling in arm. TECHNIQUE: A CT scan left arm performed with 100 mL Isovue-370 injected. FINDINGS: The humerus and proximal radius and ulna are within normal limits. No evidence of osteomyelitis. There is mild skin thickening/induration identified about the medial aspect of the arm. No gas formation identified. A focal subcutaneous abscess is suggested, it just deep to the BB marker placed on the skin. This is approximately 2.5 cm longitudinally and is about 1.5 cm in depth. The cephalic vein is just deep to this. No other lesions identified. IMPRESSION: Subcutaneous abscess is identified in the medial aspect of the upper arm. No gas formation identified. There is no abnormality of the humerus. Please note that all CT scans at this facility use dose modulation, iterative reconstruction, and/or weight-based dosing when appropriate to reduce radiation dose to as low as reasonably achievable. Dictated by Saturnino Sweet MD @ Aug 08 2017 8:41PM (Electronic Signature) Report Signed by Proxy. [facility]
--- NOTE | 2017-08-09 16:07 | OR ---
SURGEON: Lb Watts MD DATE OF PROCEDURE: 08/09/2017 PREOPERATIVE DIAGNOSIS: Left arm abscess. POSTOPERATIVE DIAGNOSIS: Left arm abscess. PROCEDURE PERFORMED: Incision and drainage. COMPLICATIONS: None. FINDINGS: Above 100 mL of foul-smelling liquified necrosis gushing out. PROCEDURE IN DETAIL: The procedure was done at bedside. Risks and benefits discussed with the patient. Consent signed in chart. Left arm was prepped and draped in a sterile fashion; 1% lidocaine with epi was injected. Using 15-blade, incision, 1.1 cm, resulted in gush of large amount of foul-smelling liquified necrosis, and the area was then packed with 1/4-inch iodoform gauze followed with an appropriate dressing. The patient tolerated the procedure well. There were no intraoperative complications. CLIFFORD / DA /[id number]
[2017-08-10] MEDS: oxyCODONE 5 MG Tab PO PRN ×3 (00:39→13:10)
[2017-08-10] MEDS: Vancomycin 1.5 GM in Sodium Chloride 0.9% 500 ML IV SCH (05:12)
[2017-08-10] MEDS ORDERED: Omeprazole 20 MG Cap.CR PO SCH (09:00)
--- NOTE | 2017-08-10 10:14 | PCM.SURGPN ---
- General Info Date of Service: 08/10/17 - Review of Systems Gastrointestinal: Reports: No Symptoms (drsg dry) - Patient Data Vitals - Most Recent: Last Vital Signs Temp 97.8 F 08/10/17 08:00 Pulse 72 08/10/17 08:00 Resp 16 08/10/17 08:00 BP 130/66 08/10/17 08:00 Pulse Ox 98 08/10/17 08:00 Weight - Most Recent: 248 lb I&O - Last 24 Hours: Intake & Output 08/09/17 08/10/17 08/10/17 22:59 06:59 14:59 Intake Total 740 Balance 740 Lab Results Last 24 Hrs: Laboratory Results - last 24 hr 08/10/17 08/10/17 Range/Units 04:21 04:21 WBC 5.75 (4.0-11.0) K/uL RBC 5.12 (4.50-5.90) M/uL Hgb 9.0 L (13.0-17.0) g/dL Hct 31.7 L (38.0-50.0) % MCV 61.9 L (80.0-98.0) fL MCH 17.6 L (27.0-32.0) pg MCHC 28.4 L (31.0-37.0) g/dL RDW Std Deviation 46.1 (28.0-62.0) fl RDW Coeff of Branden 21 H (11.0-15.0) % Plt Count 325 (150-400) K/uL Neut % (Auto) 46.4 L (48.0-80.0) % Lymph % (Auto) 35.7 (16.0-40.0) % [place] % (Auto) 13.9 (0.0-15.0) % Eos % (Auto) 3.1 (0.0-7.0) % Baso % (Auto) 0.9 (0.0-1.5) % Neut # (Auto) 2.7 (1.4-5.7) K/uL Lymph # (Auto) 2.1 (0.6-2.4) K/uL [place] # (Auto) 0.8 (0.0-0.8) K/uL Eos # (Auto) 0.2 (0.0-0.7) K/uL Baso # (Auto) 0.1 (0.0-0.1) K/uL Nucleated RBC % 0.0 /100WBC Nucleated RBCs # 0 K/uL Vancomycin Trough 4.2 L (5.0-10.0) ug/mL Med Orders - Current: Current Medications Vancomycin HCl 1.5 gm/ Sodium (Chloride) 500 mls @ 333.333 mls/hr IV Q6H [facility] Morphine Sulfate (Morphine) 2 mg IVPUSH Q2H PRN PRN Reason: Pain Last Admin: 08/09/17 14:00 Dose: 2 mg Omeprazole (Omeprazole) 20 mg PO DAILY [facility] Last Admin: 08/10/17 09:10 Dose: Not Given Oxycodone HCl (Oxycodone) 5 mg PO Q4H PRN PRN Reason: Pain (moderate 4-6) Last Admin: 08/10/17 06:52 Dose: 5 mg Vancomycin HCl (Pharmacy To Dose - Vancomycin) 1 dose .XX ASDIRECTED [facility] Discontinued Medications Ceftriaxone Sodium (Rocephin) 1,000 mg IVPUSH Q24H [facility] Ceftriaxone Sodium (Rocephin) 1,000 mg IVPUSH ONETIME ONE Stop: 08/09/17 00:44 Last Admin: 08/09/17 01:51 Dose: Not Given Vancomycin HCl 1 gm/ Sodium (Chloride) 250 mls @ 250 mls/hr IV ONETIME ONE Stop: 08/08/17 22:05 Last Admin: 08/08/17 21:39 Dose: 250 mls/hr Vancomycin HCl 500 mg/ Sodium (Chloride) 100 mls @ 100 mls/hr IV NOW ONE Stop: 08/09/17 01:59 Last Admin: 08/09/17 02:32 Dose: 100 mls/hr Vancomycin HCl 1.5 gm/ Sodium (Chloride) 500 mls @ 333.333 mls/hr IV Q8H [facility] Last Admin: 08/10/17 05:12 Dose: 333.333 mls/hr Ceftriaxone Sodium/Dextrose 1 (gm/ Premix) 50 mls @ 100 mls/hr IV ONETIME ONE Stop: 08/09/17 02:10 Last Admin: 08/09/17 01:50 Dose: 100 mls/hr Ceftriaxone Sodium/Dextrose (Rocephin In Dextrose,Iso-Osm 1 Gm/50 Ml) Confirm Administered Dose 50 mls @ as directed .ROUTE .STK-MED ONE Stop: 08/09/17 01:43 Last Admin: 08/09/17 01:51 Dose: Not Given Lactated Ringer's (Ringers, Lactated) 1,000 mls @ 75 mls/hr IV ASDIRECTED [facility] Last Admin: 08/09/17 12:07 Dose: 75 mls/hr Iopamidol (Isovue-370 (76%)) 100 ml IVPUSH ONETIME STA Stop: 08/08/17 20:22 Last Admin: 08/08/17 20:30 Dose: 100 ml Lidocaine/Epinephrine (Xylocaine 1% With Epinephrine 1:100,000) 20 ml INJECT ONETIME ONE Stop: 08/09/17 13:25 Last Admin: 08/09/17 14:38 Dose: 20 ml - Problem List Review Problem List Initiated/Reviewed/Updated: Yes - My Orders Last 24 Hours: Active Orders 24 hr Category Date Time Status Notify Provider Consults [RC] ASDIRECTED Care 08/09/17 13:03 Active Consult to Physician [CONS] Routine Cons 08/09/17 13:02 Active Regular Diet [DIET] Diet 08/09/17 Lunch Active CULTURE WOUND [RM] Routine Lab 08/09/17 14:00 Ordered VANCOMYCIN TROUGH [CHEM] Timed Lab 08/11/17 04:00 Ordered Omeprazole Med 08/10/17 09:00 Active 20 mg PO DAILY Vancomycin 1.5 gm Med 08/10/17 11:00 Active Sodium Chloride 0.9% [Normal Saline] 500 ml IV Q6H Medication Orders Vancomycin HCl 1.5 gm/ Sodium (Chloride) 500 mls @ 333.333 mls/hr IV Q6H [facility] Morphine Sulfate (Morphine) 2 mg IVPUSH Q2H PRN PRN Reason: Pain Last Admin: 08/09/17 14:00 Dose: 2 mg Admin: 08/09/17 12:14 Dose: 2 mg Admin: 08/09/17 08:41 Dose: 2 mg Admin: 08/09/17 00:29 Dose: 2 mg Omeprazole (Omeprazole) 20 mg PO DAILY [facility] Last Admin: 08/10/17 09:10 Dose: Oxycodone HCl (Oxycodone) 5 mg PO Q4H PRN PRN Reason: Pain (moderate 4-6) Last Admin: 08/10/17 06:52 Dose: 5 mg Admin: 08/10/17 00:39 Dose: 5 mg Admin: 08/09/17 20:39 Dose: 5 mg Admin: 08/09/17 13:59 Dose: 5 mg Admin: 08/09/17 01:49 Dose: 5 mg Vancomycin HCl (Pharmacy To Dose - Vancomycin) 1 dose .XX ASDIRECTED [facility] - Assessment Assessment (Free Text/Narrative):: much better, pain is better; drsg change everyday; fu w me 1 - 2 wks ; will sign off; tks for the cx and care of this nice gentleman - Plan Plan (Free Text/Narrative):: much better, pain is better; drsg change everyday; fu w me 1 - 2 wks ; will sign off; tks for the cx and care of this nice gentleman
[2017-08-10] MEDS ORDERED: Vancomycin 1.5 GM in Sodium Chloride 0.9% 500 ML IV SCH (11:00)
[2017-08-10 13:12] VITALS: BP 123/64
--- NOTE | 2017-08-10 15:09 | PCM.DCSUM1 ---
Discharge Summary - Discharge Data Discharge Date: 08/10/17 Discharge Disposition: Home, Self-Care 01 Condition: Good - Patient Summary/Data Operative Procedure(s) Performed: incision and drainage L arm abscess Consults: Consultations 08/09/17 13:02 Consult to Physician [CONS] Routine Hospital Course: 47 yo male who was admitted for right arm abscess over the biceps. CT scan of arm reported subcutaneous abscess of right upper arm. Dr. Watts was consulted and performed I&D. While in the hospital patient received IV vancomycin. He was discharged on clindamycin for ten day and is to follow up with Dr. Watts in clinic. - Discharge Plan Home Medications: Home Meds Omeprazole Magnesium [Prilosec Otc] 20 mg PO DAILY 06/12/17 [History] Patient Handouts: Skin Abscess, Cellulitis, Adult, Acetaminophen; Oxycodone tablets, Clindamycin capsules, Incision and Drainage, Care After, Docusate capsules Forms: ED Department Discharge Referrals: Lb Watts MD [Physician] - 08/14/17 10:30 am - Patient Data Vitals - Most Recent: Last Vital Signs Temp 36.9 C 08/10/17 12:00 Pulse 70 08/10/17 12:00 Resp 16 08/10/17 12:00 BP 123/64 08/10/17 12:00 Pulse Ox 99 08/10/17 12:00 Weight - Most Recent: 112.491 kg I&O - Last 24 hours: Intake & Output 08/10/17 08/10/17 08/10/17 06:59 14:59 22:59 Intake Total 740 Balance 740 Lab Results - Last 24 hrs: Laboratory Results - last 24 hr 08/10/17 08/10/17 Range/Units 04:21 04:21 WBC 5.75 (4.0-11.0) K/uL RBC 5.12 (4.50-5.90) M/uL Hgb 9.0 L (13.0-17.0) g/dL Hct 31.7 L (38.0-50.0) % MCV 61.9 L (80.0-98.0) fL MCH 17.6 L (27.0-32.0) pg MCHC 28.4 L (31.0-37.0) g/dL RDW Std Deviation 46.1 (28.0-62.0) fl RDW Coeff of Branden 21 H (11.0-15.0) % Plt Count 325 (150-400) K/uL Neut % (Auto) 46.4 L (48.0-80.0) % Lymph % (Auto) 35.7 (16.0-40.0) % [place] % (Auto) 13.9 (0.0-15.0) % Eos % (Auto) 3.1 (0.0-7.0) % Baso % (Auto) 0.9 (0.0-1.5) % Neut # (Auto) 2.7 (1.4-5.7) K/uL Lymph # (Auto) 2.1 (0.6-2.4) K/uL [place] # (Auto) 0.8 (0.0-0.8) K/uL Eos # (Auto) 0.2 (0.0-0.7) K/uL Baso # (Auto) 0.1 (0.0-0.1) K/uL Nucleated RBC % 0.0 /100WBC Nucleated RBCs # 0 K/uL Vancomycin Trough 4.2 L (5.0-10.0) ug/mL Med Orders - Current: Current Medications Vancomycin HCl 1.5 gm/ Sodium (Chloride) 500 mls @ 333.333 mls/hr IV Q6H [facility] Last Admin: 08/10/17 11:32 Dose: Not Given Morphine Sulfate (Morphine) 2 mg IVPUSH Q2H PRN PRN Reason: Pain Last Admin: 08/09/17 14:00 Dose: 2 mg Omeprazole (Omeprazole) 20 mg PO DAILY [facility] Last Admin: 08/10/17 09:10 Dose: Not Given Oxycodone HCl (Oxycodone) 5 mg PO Q4H PRN PRN Reason: Pain (moderate 4-6) Last Admin: 08/10/17 13:10 Dose: 5 mg Vancomycin HCl (Pharmacy To Dose - Vancomycin) 1 dose .XX ASDIRECTED [facility] Discontinued Medications Ceftriaxone Sodium (Rocephin) 1,000 mg IVPUSH Q24H [facility] Ceftriaxone Sodium (Rocephin) 1,000 mg IVPUSH ONETIME ONE Stop: 08/09/17 00:44 Last Admin: 08/09/17 01:51 Dose: Not Given Vancomycin HCl 1 gm/ Sodium (Chloride) 250 mls @ 250 mls/hr IV ONETIME ONE Stop: 08/08/17 22:05 Last Admin: 08/08/17 21:39 Dose: 250 mls/hr Vancomycin HCl 500 mg/ Sodium (Chloride) 100 mls @ 100 mls/hr IV NOW ONE Stop: 08/09/17 01:59 Last Admin: 08/09/17 02:32 Dose: 100 mls/hr Vancomycin HCl 1.5 gm/ Sodium (Chloride) 500 mls @ 333.333 mls/hr IV Q8H [facility] Last Admin: 08/10/17 05:12 Dose: 333.333 mls/hr Ceftriaxone Sodium/Dextrose 1 (gm/ Premix) 50 mls @ 100 mls/hr IV ONETIME ONE Stop: 08/09/17 02:10 Last Admin: 08/09/17 01:50 Dose: 100 mls/hr Ceftriaxone Sodium/Dextrose (Rocephin In Dextrose,Iso-Osm 1 Gm/50 Ml) Confirm Administered Dose 50 mls @ as directed .ROUTE .STK-MED ONE Stop: 08/09/17 01:43 Last Admin: 08/09/17 01:51 Dose: Not Given Lactated Ringer's (Ringers, Lactated) 1,000 mls @ 75 mls/hr IV ASDIRECTED [facility] Last Admin: 08/09/17 12:07 Dose: 75 mls/hr Iopamidol (Isovue-370 (76%)) 100 ml IVPUSH ONETIME STA Stop: 08/08/17 20:22 Last Admin: 08/08/17 20:30 Dose: 100 ml Lidocaine/Epinephrine (Xylocaine 1% With Epinephrine 1:100,000) 20 ml INJECT ONETIME ONE Stop: 08/09/17 13:25 Last Admin: 08/09/17 14:38 Dose: 20 ml *Q Meaningful Use (DIS) - VTE *Q VTE Pharmacological Contraindications *Q: Risk of Bleeding
--- NOTE | 2017-08-12 14:02 | CONS ---
DATE OF CONSULTATION: 08/09/2017 DATE OF : 1970 PRIMARY CARE PHYSICIAN: None PCP Consult was called, and the patient was seen shortly after. HISTORY OF PRESENT ILLNESS: The patient is a 47-year-old gentleman, seen in the emergency room for 2-day history of painful left arm. The patient remarked that he was picking on some pimple a couple of days ago, and now it became red and painful. CAT scan workup shows a small collection. Surgery was consulted. Currently, the patient denies fever, chills, or diarrhea. Denied prior episode. ALLERGIES: Please refer to nursing for details. MEDICATIONS: Please refer to nursing for details. PAST MEDICAL HISTORY: Denied diabetes, MA, CVA, or hypertension. SOCIAL HISTORY: Denied tobacco or alcohol abuse. PAST SURGICAL HISTORY: Left below-knee amputation. FAMILY HISTORY: Noncontributory. 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 HEENT: Normocephalic, atraumatic. Sclerae anicteric. LUNGS: Clear to auscultation. HEART: Regular rate and rhythm. ABDOMEN: Soft, nondistended. No pulsating or tender midline abdominal structure. EXTREMITIES: On the inner aspect of the left arm, on the very upper left arm, just a little bit distal to the axilla, there is pus and erythema. According to nursing staff's marking, the erythema is recessing, draw furnace tender to touch. The patient has full range of motion of the shoulder and the elbow joint. IMPRESSION: Superficial abscess formation, plan for incision and drainage. Risks and benefits were discussed with the patient, including bleeding, infection, and incomplete drainage. The patient concurred to proceed as planned. As always, thank you for the kind referral. CLIFFORD / DA /[id number]
== END 2017-08-10 15:40 | disposition home or self-care (01) | DRG 364 ==
LOC: MW.ED 18:06 → MW.MS 21:25
PROVIDERS: ADMIT Internal Medicine; ATTEND Internal Medicine
PROC: 0J9F0ZZ Drainage of Left Upper Arm Subcutaneous Tissue and Fascia, Open Approach (ICD-10-PCS; principal; 2017-08-09)
DX: L03.114 Cellulitis of left upper limb (principal); L02.413 Cutaneous abscess of right upper limb; K21.9 Gastro-esophageal reflux disease without esophagitis; Z89.512 Acquired absence of left leg below knee; Z79.899 Other long term (current) drug therapy; Z87.19 Personal history of other diseases of the digestive system; Z86.19 Personal history of other infectious and parasitic diseases
CPT/HCPCS: 36415; 73201-26-LT; 73201-LT; 80048; 80202; 83605; 85025; 87070; 87077; 87186; 96365; 99284; 99284-25; A9270-GY; J0696; J2270; J3370; J7030; J7040; J7050; J7120; Q9967

== ENCOUNTER 2020-02-05 08:51 | Emergency (ER) | payer BC ==
[2020-02-05] MEDS ORDERED: Sodium Chloride 0.9% 10 ML Syringe FLUSH PRN (09:26)
[2020-02-05] MEDS ORDERED: Sodium Chloride 0.9% 2.5 ML Syringe FLUSH PRN (09:26)
--- NOTE | 2020-02-05 09:27 | EDM.PDOC ---
ED HPI GENERAL MEDICAL PROBLEM - General Chief Complaint: Back Pain or Injury Stated Complaint: LOWER BACK PAIN Time Seen by Provider: 02/05/20 09:21 Source of Information: Reports: Patient History Limitations: Reports: No Limitations - History of Present Illness INITIAL COMMENTS - FREE TEXT/NARRATIVE: 49M PMHx LLE traumatic amputation presents for rash and LBP. Patient is very active and notes working out consistently. Notes 2-3 days of RLBP. No urinary symptoms noted. Patient also notes 2 days of rash on R abdomen wrapping around back. Rash is mildly painful, but his LBP pain is just inferior to the rash. No h/o shingles. Notes that he recently started an OTC liver supplement. right back Pain Score (Numeric/FACES): 5 - Related Data Allergies Allergy/AdvReac Type Severity Reaction Status Date / Time No Known Allergies Allergy Verified 02/05/20 09:21 Home Meds: Home Meds Omeprazole Magnesium [Prilosec Otc] 20 mg PO DAILY 06/12/17 [History] Acyclovir 800 mg PO 5XDAY 7 Days #35 tablet 02/05/20 [Rx] Past Medical History - Past Health History Medical/Surgical History: Denies Medical/Surgical History HEENT History: Reports: Impaired Vision Other HEENT History: wears glasses/contacts Cardiovascular History: Reports: None Respiratory History: Reports: None Gastrointestinal History: Reports: GERD, Helicobacter Pylori, Hiatal Hernia Genitourinary History: Reports: None Musculoskeletal History: Reports: Amputation Neurological History: Reports: Concussion, Headaches, Chronic Other Neuro History: has frequent headaches due to concussion during work accident Psychiatric History: Reports: None Endocrine/Metabolic History: Reports: None Hematologic History: Reports: None Immunologic History: Reports: None Oncologic (Cancer) History: Reports: None Dermatologic History: Reports: None - Infectious Disease History Infectious Disease History: Reports: MRSA - Past Surgical History Head Surgeries/Procedures: Reports: None HEENT Surgical History: Reports: None Cardiovascular Surgical History: Reports: None Respiratory Surgical History: Reports: None GI Surgical History: Reports: Appendectomy, Colonoscopy, EGD Male Surgical History: Reports: None Endocrine Surgical History: Reports: None Neurological Surgical History: Reports: None Musculoskeletal Surgical History: Reports: Amputation Other Musculoskeletal Surgeries/Procedures:: 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, proceeded by surgery on his left foot in attempt to save it Oncologic Surgical History: Reports: None Social & Family History - Family History Family Medical History: Noncontributory - Tobacco Use Smoking Status *Q: Never Smoker - Caffeine Use Caffeine Use: Reports: Other Caffeine Use Comment: pre work out - Recreational Drug Use Recreational Drug Use: Yes Recreational Drug Type: Reports: Marijuana/Hashish Other Recreational Drug Type: States has medical card - Living Situation & Occupation Living situation: Reports: , with Family Occupation: Employed ED ROS GENERAL - Review of Systems Review Of Systems: Comprehensive ROS is negative, except as noted in HPI. ED EXAM,LOWER BACK PAIN/INJURY - Physical Exam Exam: See Below Exam Limited By: No Limitations General Appearance: Alert, WD/WN, No Apparent Distress Ears: Normal External Exam Nose: Normal Inspection Throat/Mouth: Normal Inspection, Normal Voice, No Airway Compromise Head: Atraumatic, Normocephalic Neck: Normal Inspection Respiratory/Chest: No Respiratory Distress, No Accessory Muscle Use Cardiovascular: Normal Peripheral Pulses Back Exam: Normal Inspection. No: CVA Tenderness (L), CVA Tenderness (R), Muscle Spasm, Paraspinal Tenderness, Vertebral Tenderness Neurological: Alert Psychiatric: Normal Affect, Normal Mood Skin Exam: Warm, Dry, Intact, Zoster-Like Rash (in R T7-8 distribution from midline abdomen to mid-line back w/ erythema and pustular lesions) Course - Vital Signs Last Recorded V/S: Last Vital Signs Temp 97.1 F 02/05/20 09:16 Pulse 78 02/05/20 09:16 Resp 16 02/05/20 09:16 BP 123/72 02/05/20 09:16 Pulse Ox 94 L 02/05/20 09:16 - Orders/Labs/Meds Orders: Active Orders 24 hr Category Date Time Status Sodium Chloride 0.9% [Saline Flush] Med 02/05/20 09:26 Active 10 ml FLUSH ASDIRECTED PRN Sodium Chloride 0.9% [Saline Flush] Med 02/05/20 09:26 Active 2.5 ml FLUSH ASDIRECTED PRN Saline Lock Insert [OM.PC] Stat Oth 02/05/20 09:26 Ordered Medication Orders Sodium Chloride (Saline Flush) 10 ml FLUSH ASDIRECTED PRN PRN Reason: Keep Vein Open Sodium Chloride (Saline Flush) 2.5 ml FLUSH ASDIRECTED PRN PRN Reason: Keep Vein Open Labs: Laboratory Tests 02/05/20 02/05/20 02/05/20 Range/Units 09:44 09:44 10:00 WBC 4.34 (4.0-11.0) K/uL RBC 6.00 H (4.50-5.90) M/uL Hgb 16.6 (13.0-17.0) g/dL Hct 50.7 H (38.0-50.0) % MCV 84.5 (80.0-98.0) fL MCH 27.7 (27.0-32.0) pg MCHC 32.7 (31.0-37.0) g/dL RDW Std Deviation 51.1 (28.0-62.0) fl RDW Coeff of Branden 16 H (11.0-15.0) % Plt Count 227 (150-400) K/uL MPV 10.00 (7.40-12.00) fL Neut % (Auto) 57.5 (48.0-80.0) % Lymph % (Auto) 26.5 (16.0-40.0) % Day % (Auto) 14.1 (0.0-15.0) % Eos % (Auto) 1.4 (0.0-7.0) % Baso % (Auto) 0.5 (0.0-1.5) % Neut # (Auto) 2.5 (1.4-5.7) K/uL Lymph # (Auto) 1.2 (0.6-2.4) K/uL Day # (Auto) 0.6 (0.0-0.8) K/uL Eos # (Auto) 0.1 (0.0-0.7) K/uL Baso # (Auto) 0.0 (0.0-0.1) K/uL Nucleated RBC % 0.0 /100WBC Nucleated RBCs # 0 K/uL Sodium 138 (136-148) mmol/L Potassium 4.6 (3.5-5.1) mmol/L Chloride 104 (98-107) mmol/L Carbon Dioxide 27.4 (21.0-32.0) mmol/L BUN 11 (7.0-18.0) mg/dL Creatinine 0.8 (0.8-1.3) mg/dL Est Cr Clr Drug Dosing 136.43 mL/min Estimated GFR (MDRD) > 60.0 ml/min Glucose 111 H (74-106) mg/dL Calcium 8.5 (8.5-10.1) mg/dL Total Bilirubin 0.6 (0.2-1.0) mg/dL AST 20 (15-37) IU/L ALT 42 (14-63) IU/L Alkaline Phosphatase 42 L (46-116) U/L Total Protein 6.9 (6.4-8.2) g/dL Albumin 3.1 L (3.4-5.0) g/dL Globulin 3.8 (2.6-4.0) g/dL Albumin/Globulin Ratio 0.8 L (0.9-1.6) Lipase 188 (73-393) U/L Urine Color YELLOW Urine Appearance CLEAR Urine pH 8.0 (5.0-8.0) Ur Specific [place] 1.020 (1.001-1.035) Urine Protein NEGATIVE (NEGATIVE) mg/dL Urine Glucose (UA) NEGATIVE (NEGATIVE) mg/dL Urine Ketones NEGATIVE (NEGATIVE) mg/dL Urine Occult Blood NEGATIVE (NEGATIVE) Urine Nitrite NEGATIVE (NEGATIVE) Urine Bilirubin NEGATIVE (NEGATIVE) Urine Urobilinogen 0.2 (<2.0) EU/dL Ur Leukocyte Esterase NEGATIVE (NEGATIVE) Meds: Medications Generic Name Dose Route Start Last Admin Trade Name Freq PRN Reason Stop Dose Admin Sodium Chloride 10 ml 02/05/20 09:26 Saline Flush FLUSH ASDIRECTED PRN Keep Vein Open Sodium Chloride 2.5 ml 02/05/20 09:26 Saline Flush FLUSH ASDIRECTED PRN Keep Vein Open Discontinued Medications Generic Name Dose Route Start Last Admin Trade Name Frealyssa PRN Reason Stop Dose Admin Ketorolac Tromethamine 15 mg 02/05/20 09:37 Toradol IVPUSH 02/05/20 09:38 STAT STA - Re-Assessments/Exams Free Text/Narrative Re-Assessment/Exam: 02/05/20 09:40 Will check basic labs including LFTs, will check UA for hematuria. Suspect symptoms are all 2/2 zoster rash, but do not want to miss renal stone or liver pathology. 02/05/20 10:27 Labs are unremarkable. Normal LFTs, no hematuria, no UTI. Will d/c with acyclovir x1-wk. Return precautions discussed. Departure - Departure Time of Disposition: 10:27 Disposition: Home, Self-Care 01 Condition: Good Clinical Impression: Shingles Qualifiers: Herpes zoster complications: without complications Qualified Code(s): B02.9 - Zoster without complications - Discharge Information Prescriptions: Acyclovir 800 mg PO 5XDAY 7 Days #35 tablet Referrals: Jorge Luis Shoemaker [Primary Care Provider] - Forms: ED Department Discharge Additional Instructions: The following information is given to patients seen in the emergency department who are being discharged to home. This information is to outline your options for follow-up care. We provide all patients seen in our emergency department with a follow-up referral. The need for follow-up, as well as the timing and circumstances, are variable depending upon the specifics of your emergency department visit. If you don't have a primary care physician on staff, we will provide you with a referral. We always advise you to contact your personal physician following an emergency department visit to inform them of the circumstance of the visit and for follow-up with them and/or the need for any referrals to a consulting specialist. The emergency department will also refer you to a specialist when appropriate. This referral assures that you have the opportunity for follow-up care with a specialist. All of these measure are taken in an effort to provide you with optimal care, which includes your follow-up. Under all circumstances we always encourage you to contact your private physician who remains a resource for coordinating your care. When calling for follow-up care, please make the office aware that this follow-up is from your recent emergency room visit. If for any reason you are refused follow-up, please contact the [facility] at and asked to speak to the emergency department charge nurse. Please follow up with your primary care physician. If you do not have a primary care physician, see below: [facility] [address] [place] [id number] [facility] [address] [place] [id number] Sepsis Event Note (ED) - Evaluation Sepsis Screening Result: No Definite Risk - Focused Exam Vital Signs: Vital Signs Temp Pulse Resp BP Pulse Ox 02/05/20 09:16 97.1 F 78 16 123/72 94 L - My Orders Last 24 Hours: My Active Orders 02/05/20 09:26 Sodium Chloride 0.9% [Saline Flush] 10 ml FLUSH ASDIRECTED PRN Sodium Chloride 0.9% [Saline Flush] 2.5 ml FLUSH ASDIRECTED PRN Saline Lock Insert [OM.PC] Stat - Assessment/Plan Last 24 Hours: My Active Orders 02/05/20 09:26 Sodium Chloride 0.9% [Saline Flush] 10 ml FLUSH ASDIRECTED PRN Sodium Chloride 0.9% [Saline Flush] 2.5 ml FLUSH ASDIRECTED PRN Saline Lock Insert [OM.PC] Stat
[2020-02-05] MEDS ORDERED: Ketorolac 15 MG/ML SDV IVPUSH STA (09:37)
[2020-02-05 10:24] LABS: BLOOD UREA NITROGEN,BUN 11 mg/dL (7.0-18.0); CARBON DIOXIDE,CO2 27.4 mmol/L (21.0-32.0); CHLORIDE,CL 104 mmol/L (98-107); GLUCOSE RANDOM 111 mg/dL (74-106); LIPASE 188 U/L (73-393); POTASSIUM,K 4.6 mmol/L (3.5-5.1); SODIUM,NA 138 mmol/L (136-148)
[2020-02-05 10:44] VITALS: BP 136/65; PULSE 66
== END 2020-02-05 10:47 | disposition home or self-care (01) ==
LOC: MW.ED 08:51
DX: B02.9 Zoster without complications (principal); K21.9 Gastro-esophageal reflux disease without esophagitis; Z79.899 Other long term (current) drug therapy
CPT/HCPCS: 36415; 80053; 81003; 83690; 85025; 96374; 99283; J1885